=== PATIENT | male | born 1940 | race Caucasian/White ===

== ENCOUNTER 2016-03-19 14:29 | Outpatient (CLI) | payer MEDICARE | END 2016-03-19 14:30 | disposition home or self-care (01) | DX: M35.3 Polymyalgia rheumatica (principal); R73.01 Impaired fasting glucose; I12.9 Hypertensive chronic kidney disease with stage 1 through stage 4 chronic kidney disease, or unspecified chronic kidney disease; N18.1 Chronic kidney disease, stage 1 ==

== ENCOUNTER 2016-04-28 10:22 | Outpatient (CLI) | payer MEDICARE | END 2016-04-28 10:23 | disposition home or self-care (01) | DX: M35.3 Polymyalgia rheumatica (principal) ==

== ENCOUNTER 2016-05-19 11:31 | Outpatient (CLI) | payer MEDICARE | END 2016-05-19 11:32 | disposition home or self-care (01) | DX: M35.3 Polymyalgia rheumatica (principal) ==

== ENCOUNTER 2016-06-16 09:55 | Outpatient (CLI) | payer MEDICARE | END 2016-06-16 09:56 | disposition home or self-care (01) | DX: M35.3 Polymyalgia rheumatica (principal) ==

== ENCOUNTER 2016-07-14 10:38 | Outpatient (CLI) | payer MEDICARE | END 2016-07-14 10:39 | disposition home or self-care (01) | DX: M35.3 Polymyalgia rheumatica (principal) ==

== ENCOUNTER 2016-08-12 09:41 | Outpatient (CLI) | payer MEDICARE ==
[2016-08-12 18:09] LABS: CALCIUM 9.1 mg/dL (8.5-10.3); CREATININE 1.1 mg/dL (0.6-1.2)
== END 2016-08-12 09:42 | disposition home or self-care (01) ==
LOC: LAB.F 09:41
PROVIDERS: ATTEND Family Medicine
DX: G56.03 Carpal tunnel syndrome, bilateral upper limbs (principal); I10 Essential (primary) hypertension
CPT/HCPCS: 36415; 80048; 86140

== ENCOUNTER 2016-09-16 09:45 | Outpatient (CLI) | payer MEDICARE ==
[2016-09-16 18:11] LABS: BUN - BLOOD UREA NITROGEN 32 mg/dL (6-20); CALCIUM 9.2 mg/dL (8.5-10.3); CARBON DIOXIDE - CO2 24 mmol/L (21-32); CHLORIDE 104 mmol/L (101-111); CREATININE 1.1 mg/dL (0.6-1.2); GFR - MDRD 65 (>89); GLUCOSE 117 mg/dL (70-100); POTASSIUM 3.9 mmol/L (3.5-5.0); SODIUM 139 mmol/L (135-145)
== END 2016-09-16 09:46 | disposition home or self-care (01) ==
LOC: LAB.F 09:45
PROVIDERS: ATTEND Family Medicine
DX: M35.3 Polymyalgia rheumatica (principal)
CPT/HCPCS: 36415; 80048; 85651; 86140

== ENCOUNTER 2016-10-21 13:21 | Outpatient (CLI) | payer MEDICARE | END 2016-10-21 13:22 | disposition home or self-care (01) | LOC: LAB.F 13:21 | PROVIDERS: ATTEND Family Medicine | DX: M35.3 Polymyalgia rheumatica (principal) | CPT/HCPCS: 36415; 85651; 86140 ==

== ENCOUNTER 2016-11-24 12:48 | Outpatient (CLI) | payer MEDICARE | END 2016-11-24 12:49 | disposition home or self-care (01) | LOC: LAB.F 12:48 | PROVIDERS: ATTEND Family Medicine | DX: M35.3 Polymyalgia rheumatica (principal) | CPT/HCPCS: 36415; 85651; 86140 ==

== ENCOUNTER 2017-05-26 09:56 | Outpatient (CLI) | payer MEDICARE ==
[2017-05-26 17:38] LABS: BASOPHILS # (AUTO) 0.1 10^3/uL (0.0-0.1); BASOPHILS % (AUTO) 0.7 %; EOSINOPHILS # (AUTO) 0.4 10^3/uL (0.0-0.7); EOSINOPHILS % (AUTO) 5.2 %; LYMPHOCYTES % (AUTO) 25.6 %; MEAN CORPUSCULAR HEMOGLOBIN 31.4 pg (27.0-31.0); MEAN CORPUSCULAR VOLUME 94.9 fL (80.0-94.0); MEAN PLATELET VOLUME 8.3 fL (7.4-11.4); MONOCYTES # (AUTO) 0.6 10^3/uL (0.0-1.0); MONOCYTES % (AUTO) 7.7 %; NEUTROPHILS # (AUTO) 4.8 10^3/uL (1.5-6.6); NEUTROPHILS % (AUTO) 60.8 %; PLT - PLATELET COUNT 186 10^3/uL (130-450); RED BLOOD COUNT 4.47 10^6/uL (4.70-6.10); RED CELL DISTRIBUTION WIDTH 13.1 % (12.0-15.0); WHITE BLOOD COUNT 7.9 x10^3/uL (4.8-10.8)
[2017-05-26 18:02] LABS: ALBUMIN 4.3 g/dL (3.2-5.5); ALBUMIN/GLOBULIN RATIO 1.5 (1.0-2.2); ALKALINE PHOSPHATASE 53 IU/L (42-121); ALT ALANINE AMINOTRANSFERASE 14 IU/L (10-60); AST ASPARTATE AMINOTRANSFERASE 20 IU/L (10-42); BILIRUBIN,TOTAL 0.9 mg/dL (0.2-1.0); BUN - BLOOD UREA NITROGEN 25 mg/dL (6-20); CARBON DIOXIDE - CO2 27 mmol/L (21-32); CHLORIDE 102 mmol/L (101-111); CREATININE 1.1 mg/dL (0.6-1.2); GFR - MDRD 65 (>89); GLUCOSE 99 mg/dL (70-100); SODIUM 137 mmol/L (135-145); TOTAL PROTEIN 7.2 g/dL (6.7-8.2)
[2017-05-26 18:03] LABS: CRP - C-REACTIVE PROTEIN < 1.0 mg/dL (0-1.0)
== END 2017-05-26 09:57 | disposition home or self-care (01) ==
LOC: LAB.F 09:56
PROVIDERS: ATTEND Nurse Practitioner Family
DX: I49.3 Ventricular premature depolarization (principal); N18.1 Chronic kidney disease, stage 1
CPT/HCPCS: 36415; 80053; 84443; 85025; 85651; 86140; 93005

== ENCOUNTER 2017-06-05 02:05 | Emergency (ER) | payer MEDICARE ==
[2017-06-05 02:58] LABS: BASOPHILS # (AUTO) 0.1 10^3/uL (0.0-0.1); BASOPHILS % (AUTO) 1.6 %; EOSINOPHILS # (AUTO) 0.4 10^3/uL (0.0-0.7); HGB - HEMOGLOBIN 13.8 g/dL (14.0-18.0); LYMPHOCYTES # (AUTO) 1.9 10^3/uL (1.5-3.5); LYMPHOCYTES % (AUTO) 22.7 %; MEAN CORPUSCULAR HEMOGLOBIN 31.8 pg (27.0-31.0); MEAN CORPUSCULAR VOLUME 93.7 fL (80.0-94.0); MEAN PLATELET VOLUME 8.1 fL (7.4-11.4); MONOCYTES # (AUTO) 0.6 10^3/uL (0.0-1.0); MONOCYTES % (AUTO) 7.1 %; NEUTROPHILS # (AUTO) 5.2 10^3/uL (1.5-6.6); NEUTROPHILS % (AUTO) 63.6 %; PLT - PLATELET COUNT 166 10^3/uL (130-450); RED BLOOD COUNT 4.34 10^6/uL (4.70-6.10); RED CELL DISTRIBUTION WIDTH 12.8 % (12.0-15.0); WHITE BLOOD COUNT 8.2 x10^3/uL (4.8-10.8)
[2017-06-05 03:10] LABS: ALBUMIN 4.2 g/dL (3.2-5.5); ALBUMIN/GLOBULIN RATIO 1.6 (1.0-2.2); BILIRUBIN,TOTAL 0.5 mg/dL (0.2-1.0); CREATININE 1.2 mg/dL (0.6-1.2); TOTAL PROTEIN 6.9 g/dL (6.7-8.2)
--- NOTE | 2017-06-05 04:01 | XRAY Preliminary Report ---
Exam: XR CHEST 1 VIEW X-RAY IMPRESSION: 1. Borderline cardiomegaly. No acute abnormality seen. [facility] SITE ID: [id number]
--- NOTE | 2017-06-05 04:01 | XRAY Report ---
EXAM: CHEST RADIOGRAPHY EXAM DATE: 06/05/2017 03:38 AM. CLINICAL HISTORY: Elevated BNP. High blood pressure. Left arm and left jaw discomfort. COMPARISON: None. TECHNIQUE: 1 view. FINDINGS: Lungs/Pleura: No alveolar consolidation or pleural effusion. No pneumothorax. Mediastinum: Borderline cardiomegaly. Aortic atherosclerosis. Other: None. IMPRESSION: 1. Borderline cardiomegaly. No acute abnormality seen. [facility] Referring Provider Line: [phone] SITE ID: [id number]
--- NOTE | 2017-06-05 04:21 | ED Physician Documentation ---
History of Present Illness - Stated complaint Stated Complaint: HIGH BLOOD PRESSURE - Chief complaint Chief Complaint: Cardiac - History obtained from History obtained from: Patient - History of Present Illness Timing: Today - Additonal information Additional information: Patient is a 76 year old male with a history of ckd and htn. Due to the ckd patient has been monitoring his blood pressures multiple times a day. patient states that his systolic pressure reached 190 so he came to the emergency department. Upon initial evaluation in the emergency department patient was awake, alert and in no distress. Review of Systems Constitutional: denies: Fever, Chills Eyes: reports: Reviewed and negative Ears: reports: Reviewed and negative Nose: reports: Reviewed and negative Throat: denies: Sore throat Cardiac: denies: Chest pain / pressure, Palpitations, Pedal edema, Calf pain Respiratory: denies: Dyspnea, Cough, Wheezing GI: denies: Abdominal Pain, Nausea, Vomiting : reports: Reviewed and negative Skin: reports: Reviewed and negative Musculoskeletal: denies: Back pain, Extremity swelling Neurologic: denies: Generalized weakness, Focal weakness, Numbness Immunocompromised: denies: Immunocompromised PD PAST MEDICAL HISTORY - Past Medical History Past Medical History: Yes Cardiovascular: Murmur : Renal insuffiency - Past Surgical History Ortho: Carpal Tunnel surgery HEENT: Cataracts - Present Medications Home Medications: Ambulatory Orders Medication Instructions Recorded Confirmed Losartan/Hydrochlorothiazide 1 tab PO DAILY 06/05/17 06/05/17 [Losartan-Hctz 100-25 mg Tab] - Allergies Allergies/Adverse Reactions: Allergies Allergy/AdvReac Type Severity Reaction Status Date / Time Penicillins Allergy Unknown Verified 06/05/17 02:17 - Social History Does the pt smoke?: No Smoking Status: Former smoker Does the pt drink ETOH?: No Does the pt have substance abuse?: No - POLST Patient has POLST: No PD ED PE NORMAL - Vitals Vital signs reviewed: Yes - General General: Alert and oriented X 3, No acute distress - HEENT HEENT: Atraumatic, PERRL - Neck Neck: Supple, no meningeal sign - Cardiac Cardiac: RRR, No murmur - Respiratory Respiratory: No respiratory distress, Clear bilaterally - Abdomen Abdomen: Soft, Non tender, Non distended - Derm Derm: Normal color - Extremities Extremities: No deformity, No edema - Neuro Neuro: Alert and oriented X 3, No motor deficit, No sensory deficit, Normal speech Eye Opening: Spontaneous Motor: Obeys Commands Verbal: Oriented GCS Score: 15 - Psych Psych: Normal mood PD ED PE EXPANDED - Neck Neck: JVD present Results - Vitals Vitals: Vital Signs - 24 hr 06/05/17 06/05/17 06/05/17 02:11 02:44 03:27 Temperature 36.4 C L Heart Rate 70 64 59 L Respiratory 18 14 20 Rate Blood Pressure 188/66 H 170/52 H 165/51 H O2 Saturation 96 98 98 06/05/17 04:22 Temperature Heart Rate 61 Respiratory 18 Rate Blood Pressure 176/77 H O2 Saturation 99 Oxygen O2 Source Room air - EKG (time done) 0219 Rate: Rate (enter#) (68) Rhythm: NSR [place]: Normal Intervals: RBBB QRS: LVH Compare to prior EKG: Changed from prior EKG - Labs Labs: Laboratory Tests 06/05/17 06/05/17 06/05/17 02:30 02:30 02:30 WBC 8.2 RBC 4.34 L Hgb 13.8 L Hct 40.7 L MCV 93.7 MCH 31.8 H MCHC 34.0 RDW 12.8 Plt Count 166 MPV 8.1 Neut # 5.2 Lymph # 1.9 Cole # 0.6 Eos # 0.4 Baso # 0.1 Absolute Nucleated RBC 0.00 Nucleated RBC % 0.0 D-Dimer Sodium 137 Potassium 4.2 Chloride 105 Carbon Dioxide 24 Anion Gap 8.0 BUN 33 H Creatinine 1.2 Estimated GFR (MDRD) 59 L Glucose 109 H Calcium 9.0 Total Bilirubin 0.5 AST 19 ALT 13 Alkaline Phosphatase 52 Troponin I 0.05 B-Natriuretic Peptide Total Protein 6.9 Albumin 4.2 Globulin 2.7 Albumin/Globulin Ratio 1.6 Lipase 29 06/05/17 06/05/17 02:30 02:30 WBC RBC Hgb Hct MCV MCH MCHC RDW Plt Count MPV Neut # Lymph # Cole # Eos # Baso # Absolute Nucleated RBC Nucleated RBC % D-Dimer < 200.0 L Sodium Potassium Chloride Carbon Dioxide Anion Gap BUN Creatinine Estimated GFR (MDRD) Glucose Calcium Total Bilirubin AST ALT Alkaline Phosphatase Troponin I B-Natriuretic Peptide 400 H Total Protein Albumin Globulin Albumin/Globulin Ratio Lipase - Rads (name of study) chest x-ray Radiology: Final report received (cardiomegaly no signs of overt failure) PD MEDICAL DECISION MAKING - ED course Complexity details: reviewed old records, reviewed results, re-evaluated patient , considered differential, d/w patient, d/w family, d/w networks software consultant ED course: Patient was seen and examined at bedside. IV access was gained and labs were drawn. ekg was performed which showed lvh and a right bundle branch block. Patient was placed on a monitor. patient denied any acute complaints. patient' s diagnostic revealed slightly worse gfr and a bnp of 400. ekg was compared to a prior ekg from ten days ago and the rbbb was new. chest x-ray was performed and showed no sign of acute fluid overload. Patient was found to have a few intermittent pauses on diagnostic cardiac sonographer that lasted a few seconds. Due to the cardiac pause and ekg changes cardiology was contacted and the case was discussed with dr. cedeño at [place]. He stated as long as the pause was less than 5 seconds and the patient was asymptomatic no further work up was necessary at this time. Patient and family were made aware of the findings. Patient remained chest pain free and required no further work up. Patient was stable for discharge with outpatient follow up. Departure - Departure Disposition: Home, Self Care Clinical Impression: Hypertension, CKD (chronic kidney disease) Condition: Good Instructions: Hypertension Kidney Disease Follow-Up: nJ Hosuton MD [Primary Care Provider] - Within 3 Days Comments: Your diagnostics today showed that your kidney function is slowly getting worse. You were also found to have changes with your ekg and you have and enlarged heart. While there is nothing that needs to emergently happen you do need follow up. It is important that you follow up with your doctor on wednesday and get the stress test and echo-cardiogram. You were also found to have a pause in your heartbeat. Your's was slow but at times they can get longer. You should return to the emergency department if your pass out, or feel like you are going to pass out. You should also come in for chest pain, trouble breathing, leg swelling, new worsening or uncontrollable symptoms.
[2017-06-05 04:23] VITALS: BP 176/77
== END 2017-06-05 04:33 | disposition home or self-care (01) ==
LOC: ED 02:05
DX: I12.9 Hypertensive chronic kidney disease with stage 1 through stage 4 chronic kidney disease, or unspecified chronic kidney disease (principal); N18.9 Chronic kidney disease, unspecified; I51.7 Cardiomegaly; I45.10 Unspecified right bundle-branch block; Z87.891 Personal history of nicotine dependence
CPT/HCPCS: 36415; 71045; 80053; 83690; 83880; 84484; 85025; 85379; 93005; 99284

== ENCOUNTER 2018-04-06 01:48 | Emergency (ER) | payer MEDICARE, OTHER ==
--- NOTE | 2018-04-06 02:05 | ED Physician Documentation ---
History of Present Illness - Stated complaint Stated Complaint: RACING HEART BEAT - Chief complaint Chief Complaint: Cardiac - History obtained from History obtained from: Patient - History of Present Illness Timing: Enter time (20:15), Today Pain level max: 0 Pain level now: 0 Improved by: nothing Worsened by: no exacerbating factors - Additonal information Additional information: sudden onset rapid palpitations 8:15 tonight while sitting at home. he has had similar episodes in the recent past but these have been self-limited (resolving in no more than an hour) and thus he did not seek medical attention until tonight (as the episode is ongoing for several hours). Review of Systems Constitutional: reports: Reviewed and negative Cardiac: reports: Palpitations. denies: Chest pain / pressure, Pedal edema Respiratory: reports: Reviewed and negative GI: reports: Reviewed and negative Musculoskeletal: reports: Reviewed and negative Neurologic: reports: Reviewed and negative PD PAST MEDICAL HISTORY - Past Medical History Cardiovascular: Murmur : Renal insuffiency - Past Surgical History Ortho: Carpal Tunnel surgery HEENT: Cataracts - Present Medications Home Medications: Ambulatory Orders Medication Instructions Recorded Confirmed Losartan/Hydrochlorothiazide 1 tab PO DAILY 06/05/17 06/05/17 [Losartan-Hctz 100-25 mg Tab] Metoprolol Tartrate 25 mg PO ONCE PRN #10 tablet 04/06/18 - Allergies Allergies/Adverse Reactions: Allergies Allergy/AdvReac Type Severity Reaction Status Date / Time Penicillins Allergy Unknown Verified 04/06/18 01:57 - Social History Does the pt smoke?: No Smoking Status: Former smoker Does the pt drink ETOH?: No Does the pt have substance abuse?: No - POLST Patient has POLST: No PD ED PE NORMAL - Vitals Vital signs reviewed: Yes - General General: Alert and oriented X 3, No acute distress, Well developed/nourished - Neck Neck: Thyroid normal - Cardiac Cardiac: No murmur - Respiratory Respiratory: No respiratory distress, Clear bilaterally - Abdomen Abdomen: Soft, Non tender - Derm Derm: Normal color, Warm and dry - Extremities Extremities: No edema PD ED PE EXPANDED - Cardiac Cardiac: Tachy, Irregularly irregular Results - Vitals Vitals: Vital Signs - 24 hr 04/06/18 04/06/18 04/06/18 01:50 02:09 02:50 Temperature 36.2 C L Heart Rate 126 H 122 H Respiratory 17 16 Rate Blood Pressure 153/75 H 144/64 H Blood Pressure 148/68 H [Right] O2 Saturation 97 96 04/06/18 04/06/18 04/06/18 02:55 03:00 03:05 Temperature Heart Rate 54 L 52 L 53 L Respiratory 16 16 16 Rate Blood Pressure 124/39 L 121/39 L 124/40 L Blood Pressure [Right] O2 Saturation 96 96 95 04/06/18 04/06/18 04/06/18 03:20 03:35 03:50 Temperature Heart Rate 52 L 52 L 53 L Respiratory 14 16 16 Rate Blood Pressure 128/39 L 129/47 L 124/38 L Blood Pressure [Right] O2 Saturation 96 96 96 04/06/18 05:14 Temperature Heart Rate 54 L Respiratory 16 Rate Blood Pressure 128/56 L Blood Pressure [Right] O2 Saturation 96 Oxygen O2 Source Room air - EKG (time done) No standard instances Rate: Rate (enter#) (123) Rhythm: Atrial fibrillation [place]: Normal Intervals: RBBB QRS: Normal Compare to prior EKG: Changed from prior EKG (NSR on 06/05/17 although RBBB was present on the 06/05/17 EKG) - Labs Labs: Laboratory Tests 04/06/18 04/06/18 04/06/18 01:55 01:55 01:55 WBC 8.8 RBC 4.50 L Hgb 14.0 Hct 42.4 MCV 94.3 H MCH 31.2 H MCHC 33.1 RDW 13.3 Plt Count 168 MPV 8.0 Neut # (Auto) 6.1 Lymph # (Auto) 1.7 [place] # (Auto) 0.7 Eos # (Auto) 0.2 Baso # (Auto) 0.1 Absolute Nucleated RBC 0.00 Nucleated RBC % 0.0 Sodium 138 Potassium 4.5 Chloride 108 Carbon Dioxide 22 Anion Gap 8.0 BUN 34 H Creatinine 1.3 H Estimated GFR (MDRD) 53 L Glucose 130 H Calcium 8.9 Total Bilirubin 0.7 AST 19 ALT 12 Alkaline Phosphatase 47 Troponin I 0.10 Total Protein 7.1 Albumin 4.1 Globulin 3.0 Albumin/Globulin Ratio 1.4 Lipase 37 TSH 04/06/18 01:55 WBC RBC Hgb Hct MCV MCH MCHC RDW Plt Count MPV Neut # (Auto) Lymph # (Auto) [place] # (Auto) Eos # (Auto) Baso # (Auto) Absolute Nucleated RBC Nucleated RBC % Sodium Potassium Chloride Carbon Dioxide Anion Gap BUN Creatinine Estimated GFR (MDRD) Glucose Calcium Total Bilirubin AST ALT Alkaline Phosphatase Troponin I Total Protein Albumin Globulin Albumin/Globulin Ratio Lipase TSH 1.06 - Rads (name of study) chest xray Radiology: Prelim report reviewed, See rad report PD MEDICAL DECISION MAKING - ED course Complexity details: reviewed old records, reviewed results, re-evaluated patient, considered differential, d/w patient, d/w family ED course: converted to NSR immediately after iv cardizem, and this correlated with sudden resolution of symptoms. I emphasized the importance of following up with his doctor, as further testing might be needed (such as echo) and options for treatment can be discussed Departure - Departure Disposition: 01 Home, Self Care Clinical Impression: Atrial fibrillation Condition: Good Instructions: ED Afib Prescriptions: Metoprolol Tartrate 25 mg PO ONCE PRN #10 tablet PRN Reason: Tachycardia Comments: If you have another episode of rapid heart rate, take your blood pressure. If the systolic blood pressure (upper number) is 120 or higher, you can take a dose of the metoprolol (the medication I prescribed for you). If it doesn't resolve the symptoms within 1 hour, you should return to the emergency department. You can also try bearing down for 15 seconds (as if having a bowel movement) and suddenly relaxing; this can sometimes result in resolution of the rapid heart rate. If you are having shortness of breath, chest pain, lightheadedness, or any other concerning symptoms, please call 911. Discharge Date/Time: 04/06/18 05:15
[2018-04-06 02:10] LABS: BASOPHILS # (AUTO) 0.1 10^3/uL (0.0-0.1); BASOPHILS % (AUTO) 0.8 %; EOSINOPHILS # (AUTO) 0.2 10^3/uL (0.0-0.7); EOSINOPHILS % (AUTO) 2.8 %; LYMPHOCYTES # (AUTO) 1.7 10^3/uL (1.5-3.5); LYMPHOCYTES % (AUTO) 19.5 %; MEAN CORPUSCULAR HEMOGLOBIN 31.2 pg (27.0-31.0); MEAN CORPUSCULAR HGB CONC 33.1 g/dL (32.0-36.0); MEAN CORPUSCULAR VOLUME 94.3 fL (80.0-94.0); MONOCYTES # (AUTO) 0.7 10^3/uL (0.0-1.0); MONOCYTES % (AUTO) 7.6 %; NEUTROPHILS # (AUTO) 6.1 10^3/uL (1.5-6.6); NEUTROPHILS % (AUTO) 69.3 %; PLT - PLATELET COUNT 168 10^3/uL (130-450); RED CELL DISTRIBUTION WIDTH 13.3 % (12.0-15.0); WHITE BLOOD COUNT 8.8 x10^3/uL (4.8-10.8)
[2018-04-06 02:22] LABS: ALBUMIN 4.1 g/dL (3.2-5.5); ALBUMIN/GLOBULIN RATIO 1.4 (1.0-2.2); BILIRUBIN,TOTAL 0.7 mg/dL (0.2-1.0); CALCIUM 8.9 mg/dL (8.5-10.3); CREATININE 1.3 mg/dL (0.6-1.2); TOTAL PROTEIN 7.1 g/dL (6.7-8.2)
[2018-04-06] MEDS ORDERED: diltiaZEM INJ 5 MG/ML VIAL IVP STA (02:28)
--- NOTE | 2018-04-06 03:03 | XRAY Report ---
Reason: palpitations, MARSHA Procedure Date: 04/06/2018 Accession Number: [id number] / [id number] Procedure: XR - Chest 2 View X-Ray CPT Code: 71163 FULL RESULT: EXAM: CHEST RADIOGRAPHY EXAM DATE: 04/06/2018 02:48 AM. CLINICAL HISTORY: Palpitations, MARSHA. COMPARISON: CHEST 1 VIEW 06/05/2017 3:38 AM. TECHNIQUE: 2 views. FINDINGS: Lungs/Pleura: No alveolar consolidation or pleural effusion seen. Borderline pulmonary vascular congestion. No pneumothorax. Mediastinum: Mild cardiomegaly. Aortic atherosclerosis. Other: None. IMPRESSION: 1. Mild cardiomegaly and borderline pulmonary vascular congestion. [facility]
[2018-04-06 05:15] VITALS: BP 128/56
== END 2018-04-06 05:15 | disposition home or self-care (01) ==
LOC: ED 01:48
DX: I48.91 Unspecified atrial fibrillation (principal); Z87.891 Personal history of nicotine dependence
CPT/HCPCS: 36415; 71046; 80053; 83690; 84443; 84484; 85025; 93005; 99284

== ENCOUNTER 2018-05-18 12:06 | Outpatient (CLI) | payer MEDICARE, OTHER ==
--- NOTE | 2018-05-18 13:34 | CARDIAC PROCEDURE NOTE ---
DATE OF SERVICE: 05/18/2018 Physician: Jennifer Liao MD, [facility] INDICATION: Dyspnea. The patient described to me dyspnea just walking from one room to the other in his house. ORDERED TEST: Treadmill stress test with Echo. RESTING EKG: Normal sinus rhythm, right bundle branch block, RVH, severe LVH voltage with strain pattern. RESTING ECHO (preliminary report) showed: an LV wall motion abnormality is present at rest, and there is severe aortic regurgitation and critical aortic stenosis. The stress test is contraindicated with critical aortic stenosis. Reny Wolf NP was contacted. The patient will go on to have a full Echo with Doppler today, but no stress test, and he needs urgent evaluation by Cardiology regarding his aortic valve. TD: 05/18/2018 13:21 MTDD
== END 2018-05-18 12:07 | disposition home or self-care (01) ==
LOC: DI 12:06
PROVIDERS: ATTEND Nurse Practitioner Family
DX: I08.3 Combined rheumatic disorders of mitral, aortic and tricuspid valves (principal)
CPT/HCPCS: 93016; 93017; 93018; 93306; 93350; 93351

== ENCOUNTER 2018-06-03 09:46 | Outpatient (CLI) | payer MEDICARE, OTHER ==
[2018-06-03 18:08] LABS: CREATININE 1.7 mg/dL (0.6-1.2)
== END 2018-06-03 09:47 | disposition home or self-care (01) ==
LOC: LAB.F 09:46
PROVIDERS: ATTEND Specialist
DX: I50.22 Chronic systolic (congestive) heart failure (principal)
CPT/HCPCS: 36415; 80048; 83880

== ENCOUNTER 2018-06-26 08:33 | Emergency (ER) | payer MEDICARE, OTHER ==
[2018-06-26] MEDS ORDERED: diltiaZEM INJ 5 MG/ML VIAL IVP STA (09:03)
--- NOTE | 2018-06-26 09:06 | ED Physician Documentation ---
History of Present Illness - Stated complaint Stated Complaint: AFIB - Chief complaint Chief Complaint: Cardiac - History obtained from History obtained from: Patient, Family - History of Present Illness Timing: Enter time (0600), Today - Additonal information Additional information: 77-year-old male with a history of critical aortic stenosis and a atrial fibrillation has developed rapid atrial fibrillation and he has taken some oral diltiazem this is not slowed his rate down. He did do some Valsalva maneuvers this did not help as well. He reports that he has had 3 prior episodes that have resolved resolved with Valsalva maneuver. He was seen in the emergency department in March of this year given diltiazem with conversion. He has had a stress echo which was aborted secondary to critical aortic stenosis. He has been into see the riverboat captain and the cardiothoracic surgeon with a plan to have a TAVR placed. Review of Systems Constitutional: denies: Fever, Chills, Myalgias Eyes: denies: Decreased vision Ears: denies: Ear pain Nose: reports: Congestion. denies: Rhinorrhea / runny nose Throat: denies: Sore throat Cardiac: denies: Chest pain / pressure, Palpitations Respiratory: reports: Cough. denies: Dyspnea GI: denies: Abdominal Pain, Nausea, Vomiting : denies: Dysuria, Frequency Skin: denies: Rash Musculoskeletal: denies: Neck pain, Back pain, Extremity pain Neurologic: denies: Generalized weakness, Focal weakness, Numbness PD PAST MEDICAL HISTORY - Past Medical History Cardiovascular: Murmur : Renal insuffiency - Past Surgical History Ortho: Carpal Tunnel surgery HEENT: Cataracts - Present Medications Home Medications: Ambulatory Orders Medication Instructions Recorded Confirmed Metoprolol Tartrate 25 mg PO ONCE PRN #10 tablet 04/06/18 06/26/18 Furosemide 40 mg PO DAILY 06/26/18 06/26/18 Metoprolol Succinate [Toprol Xl] 25 mg PO DAILY PM 06/26/18 06/26/18 - Allergies Allergies/Adverse Reactions: Allergies Allergy/AdvReac Type Severity Reaction Status Date / Time Penicillins Allergy Unknown Verified 06/26/18 08:43 - Social History Does the pt smoke?: No Smoking Status: Former smoker Does the pt drink ETOH?: No Does the pt have substance abuse?: No - Immunizations Immunizations are current?: Yes - POLST Patient has POLST: No PD ED PE NORMAL - Vitals Vital signs reviewed: Yes (tachy and diastolic hypotension ) - General General: Alert and oriented X 3, No acute distress, Well developed/nourished - HEENT HEENT: Atraumatic, PERRL, EOMI, Ears normal, Other (dry mucous membranes ) - Neck Neck: Supple, no meningeal sign, No bony TTP - Cardiac Cardiac: No murmur, Other (regular rate at 106 2/6 holosystolic murmer at LSB) - Respiratory Respiratory: No respiratory distress, Clear bilaterally - Abdomen Abdomen: Soft, Non tender - Back Back: No CVA TTP, No spinal TTP - Derm Derm: Normal color, Warm and dry, No rash - Extremities Extremities: No deformity, No edema - Neuro Neuro: Alert and oriented X 3, corporate compliance manager 2-12 intact, No motor deficit, No sensory deficit, Normal speech Eye Opening: Spontaneous Motor: Obeys Commands Verbal: Oriented GCS Score: 15 - Psych Psych: Normal mood, Normal affect Results - Vitals Vitals: Vital Signs - 24 hr 06/26/18 06/26/18 08:40 09:24 Temperature 36.2 C L 36.9 C Heart Rate 107 H 62 Respiratory 24 16 Rate Blood Pressure 126/55 L 135/47 H O2 Saturation 95 94 Oxygen O2 Source Room air - EKG (time done) 0839 Rate: Rate (enter#) (106) Rhythm: Atrial fibrillation Intervals: RBBB Compare to prior EKG: Changed from prior EKG (SPT 04-06-18 the rate has decreased. ) Computer interpretation: Disagree with computer (I do not see p-waves. The patient does have other EKG's with p-waves. ) 0934 Rate: Rate (enter#) (61) Rhythm: NSR Intervals: Prolonged [place], RBBB Ischemia: Non specific changes Compare to prior EKG: Changed from prior EKG (SPT earlier today rate has slowed and rhythm has converted into sinus.) Computer interpretation: Agree with computer - Labs Labs: Laboratory Tests 06/26/18 06/26/18 06/26/18 08:50 08:50 08:50 WBC 8.5 RBC 4.16 L Hgb 13.0 L Hct 39.5 L MCV 95.0 H MCH 31.2 H MCHC 32.8 RDW 13.2 Plt Count 175 MPV 8.8 Neut # (Auto) 6.6 Lymph # (Auto) 1.1 L [place] # (Auto) 0.4 Eos # (Auto) 0.3 Baso # (Auto) 0.1 Absolute Nucleated RBC 0.00 Nucleated RBC % 0.0 Sodium 136 Potassium 4.0 Chloride 101 Carbon Dioxide 25 Anion Gap 10.0 BUN 49 H Creatinine 1.7 H Estimated GFR (MDRD) 39 L Glucose 179 H Calcium 8.8 Total Bilirubin 1.7 H AST 34 ALT 43 Alkaline Phosphatase 60 Troponin I 0.05 Total Protein 6.9 Albumin 3.8 Globulin 3.1 Albumin/Globulin Ratio 1.2 Lipase 37 Procedures - IVC sono (time) 0900 Bedside IVC sono: IVC measures (cm) (1.76), IVC collapsed c insp (cm) (1.26), Collapsibility index (0.26), Euvolemia (nearly failing.) PD MEDICAL DECISION MAKING - ED course Complexity details: reviewed old records, reviewed results, re-evaluated patient, considered differential, d/w patient, d/w family ED course: 77-year-old male with atrial fibrillation intermittently and critical aortic stenosis as a rapid heart rate this morning he is not volume depleted and he does not appear to be in failure. Diltiazem was ordered and the patient converted prior to administration. He has taken the oral dilt at about 0645 and he converted at about 0915. Departure - Departure Disposition: 01 Home, Self Care Clinical Impression: Atrial fibrillation Qualifiers: Atrial fibrillation type: paroxysmal Qualified Code(s): I48.0 - Paroxysmal atrial fibrillation Condition: Stable Instructions: ED Afib Follow-Up: George Valdes MD [Primary Care Provider] -
[2018-06-26 09:21] LABS: BASOPHILS # (AUTO) 0.1 10^3/uL (0.0-0.1); BASOPHILS % (AUTO) 0.6 %; EOSINOPHILS # (AUTO) 0.3 10^3/uL (0.0-0.7); EOSINOPHILS % (AUTO) 3.7 %; LYMPHOCYTES # (AUTO) 1.1 10^3/uL (1.5-3.5); LYMPHOCYTES % (AUTO) 12.5 %; MEAN CORPUSCULAR HEMOGLOBIN 31.2 pg (27.0-31.0); MEAN CORPUSCULAR HGB CONC 32.8 g/dL (32.0-36.0); MEAN PLATELET VOLUME 8.8 fL (7.4-11.4); MONOCYTES # (AUTO) 0.4 10^3/uL (0.0-1.0); MONOCYTES % (AUTO) 5.3 %; NEUTROPHILS # (AUTO) 6.6 10^3/uL (1.5-6.6); NEUTROPHILS % (AUTO) 77.9 %; PLT - PLATELET COUNT 175 10^3/uL (130-450); RED BLOOD COUNT 4.16 10^6/uL (4.70-6.10); RED CELL DISTRIBUTION WIDTH 13.2 % (12.0-15.0); WHITE BLOOD COUNT 8.5 x10^3/uL (4.8-10.8)
[2018-06-26 09:33] LABS: ALBUMIN 3.8 g/dL (3.2-5.5); ALBUMIN/GLOBULIN RATIO 1.2 (1.0-2.2); BILIRUBIN,TOTAL 1.7 mg/dL (0.2-1.0); CALCIUM 8.8 mg/dL (8.5-10.3); CREATININE 1.7 mg/dL (0.6-1.2); TOTAL PROTEIN 6.9 g/dL (6.7-8.2)
[2018-06-26 10:19] VITALS: BP 117/44
== END 2018-06-26 10:15 | disposition home or self-care (01) ==
LOC: ED 08:33
DX: I48.0 Paroxysmal atrial fibrillation (principal); I35.0 Nonrheumatic aortic (valve) stenosis; I45.10 Unspecified right bundle-branch block; R00.0 Tachycardia, unspecified; Z87.891 Personal history of nicotine dependence
CPT/HCPCS: 36415; 80053; 83690; 84484; 85025; 93005; 99283; 99284

== ENCOUNTER 2018-06-27 03:30 | Outpatient (CLI) | payer MEDICARE, OTHER | END 2018-06-27 03:31 | disposition critical access hospital (66) | LOC: EMS 03:30 | PROVIDERS: ATTEND Surgery | DX: R06.02 Shortness of breath (principal); R07.89 Other chest pain; R19.7 Diarrhea, unspecified | CPT/HCPCS: A0425; A0427 ==

== ENCOUNTER 2018-06-27 04:04 | Emergency (ER) | payer MEDICARE, OTHER ==
[2018-06-27] MEDS ORDERED: DOXYCYCLINE 100 MG TABLET PO STA (04:22)
[2018-06-27] MEDS ORDERED: DEXAMETHASONE 10 MG/ML VIAL IVP STA (04:22)
--- NOTE | 2018-06-27 04:23 | ED Physician Documentation ---
PD HPI DYSPNEA - Stated complaint Stated Complaint: SOA - Chief complaint Chief Complaint: Resp - History obtained from History obtained from: Patient, EMS - History of Present Illness Timing - onset: Today (He wasIn bed and had a feeling of his heart rate going fast. He has had paroxysmal atrial fibrillation over the past several months. He took an extra metoprolol and waited an hour to see if it would improve. Is still felt fast for him and he called EMS. On their arrival they states that rate was slowing down slowly. He arrived to the hospital feeling his heart rate was more normal rate. He had had some wheezing and dyspnea still on route and was given a nebulizer treatment. He states that is feeling okay at this time As well. He states he has had a cough today productive of some yellow sputum. He denies any history of asthma or emphysema. He does not use any home oxygen or inhalers.) Timing - onset during: Sleep Timing - duration: Hours (1-2) Timing - details: Abrupt onset, Now resolved Inciting event(s): URI (has had some cough with yellow sputum and feeling of tightness in chest.). No: Out of meds Improved by: Inhaler/neb (given by EMS enroute; he does not usually use meds/inhalers for breathing.) Worsened by: Exertion (he does not do much exertional activity due to tight aortic stenosis, with plan for intravascular valvuloplasty later this month.) Associated symptoms: Cough (today), Chest pain / discomfort (tightness), Palpitations (had feeling of fast heart rate for over an hour this morning. 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 No known CAD/MIs.). No: Fever, Hemoptysis, Wheezing Review of Systems Constitutional: denies: Fever, Chills, Myalgias Nose: denies: Rhinorrhea / runny nose, Congestion Throat: denies: Sore throat Cardiac: reports: Chest pain / pressure, Palpitations. denies: Pedal edema, Calf pain Respiratory: reports: Dyspnea, Cough GI: denies: Nausea, Vomiting, Diarrhea Skin: denies: Rash, Lesions Neurologic: denies: Headache PD PAST MEDICAL HISTORY - Past Medical History Cardiovascular: Murmur, Valve disorder (with aortic stenosis, and planned valvuloplasty) Respiratory: None Neuro: None Endocrine/Autoimmune: None : Renal insuffiency - Past Surgical History Ortho: Carpal Tunnel surgery HEENT: Cataracts - Present Medications Home Medications: Ambulatory Orders Medication Instructions Recorded Confirmed Metoprolol Tartrate 25 mg PO ONCE PRN #10 tablet 04/06/18 06/27/18 Furosemide 40 mg PO DAILY 06/26/18 06/27/18 Metoprolol Succinate [Toprol Xl] 25 mg PO DAILY PM 06/26/18 06/27/18 Albuterol Sulf [Ventolin Hfa 1 - 2 puffs INH Q4HR PRN #1 inhaler 06/27/18 Inhaler] Dexamethasone [Decadron] 4 mg PO DAILY #5 tablet 06/27/18 Doxycycline Hyclate 100 mg PO BID #14 capsule 06/27/18 - Allergies Allergies/Adverse Reactions: Allergies Allergy/AdvReac Type Severity Reaction Status Date / Time Penicillins Allergy Unknown Verified 06/27/18 04:21 - Living Situation Living Situation: reports: With family Living Arrangement: reports: At home - Social History Does the pt smoke?: No Smoking Status: Former smoker Does the pt drink ETOH?: No Does the pt have substance abuse?: No - Family History Family history: reports: Non contributory - Immunizations Immunizations are current?: Yes - POLST Patient has POLST: No PD ED PE NORMAL - Vitals Vital signs reviewed: Yes - General General: Alert and oriented X 3, No acute distress, Well developed/nourished - HEENT HEENT: PERRL, Pharynx benign - Neck Neck: Supple, no meningeal sign, No adenopathy - Cardiac Cardiac: RRR, No murmur - Respiratory Respiratory: Clear bilaterally - Abdomen Abdomen: Soft, Non tender - Back Back: No CVA TTP - Derm Derm: Normal color, Warm and dry, Other - Extremities Extremities: No deformity, No tenderness to palpate, No edema, No calf tenderness / cord - Neuro Neuro: Alert and oriented X 3, No motor deficit, No sensory deficit, Normal speech Results - Vitals Vitals: Vital Signs - 24 hr 06/27/18 06/27/18 06/27/18 04:10 04:34 04:47 Temperature 36.1 C L Heart Rate 62 57 L 47 L Respiratory 20 16 19 Rate Blood Pressure 154/50 H 136/49 H 126/49 L O2 Saturation 99 96 96 06/27/18 05:08 Temperature Heart Rate 55 L Respiratory 20 Rate Blood Pressure 119/54 L O2 Saturation 97 Oxygen O2 Source Room air - Labs Labs: Laboratory Tests 06/27/18 06/27/18 06/27/18 04:20 04:20 04:20 WBC 8.6 RBC 4.09 L Hgb 12.9 L Hct 38.5 L MCV 94.0 MCH 31.5 H MCHC 33.5 RDW 13.8 Plt Count 170 MPV 9.0 Neut # (Auto) 6.4 Lymph # (Auto) 1.2 L [place] # (Auto) 0.6 Eos # (Auto) 0.3 Baso # (Auto) 0.1 Absolute Nucleated RBC 0.00 Nucleated RBC % 0.0 Sodium 137 Potassium 4.4 Chloride 104 Carbon Dioxide 23 Anion Gap 10.0 BUN 52 H Creatinine 1.5 H Estimated GFR (MDRD) 45 L Glucose 108 H Calcium 8.8 Magnesium 2.3 Total Bilirubin 1.5 H AST 29 ALT 39 Alkaline Phosphatase 65 Troponin I 0.07 B-Natriuretic Peptide Total Protein 6.6 L Albumin 3.7 Globulin 2.9 Albumin/Globulin Ratio 1.3 Lipase 34 06/27/18 04:20 WBC RBC Hgb Hct MCV MCH MCHC RDW Plt Count MPV Neut # (Auto) Lymph # (Auto) [place] # (Auto) Eos # (Auto) Baso # (Auto) Absolute Nucleated RBC Nucleated RBC % Sodium Potassium Chloride Carbon Dioxide Anion Gap BUN Creatinine Estimated GFR (MDRD) Glucose Calcium Magnesium Total Bilirubin AST ALT Alkaline Phosphatase Troponin I B-Natriuretic Peptide 6040.00 H Total Protein Albumin Globulin Albumin/Globulin Ratio Lipase PD MEDICAL DECISION MAKING - ED course Complexity details: reviewed results, re-evaluated patient (He is still breathing well here in the department. It sounds like his symptoms related to the rapid A. fib with some subsequent mild distribution congestive heart failure as he does not really look fluid overloaded significantly. He does describe some cough and yellow sputum production so there may be a bronchitis as well. It does not look pneumonic on x-ray.), considered differential (He has had prior similar episodes with atrial fib. It seems to have converted out to normal. However he still has some shortness of breath along with some yellow pattern sputum. He has noticed tightness of breathing. We will get a chest x-ray and give him some antibiotics and steroids for concern of bacterial cause.), d/w patient Departure - Departure Disposition: Home, Self Care Clinical Impression: Paroxysmal atrial fibrillation Acute bronchitis Qualifiers: Bronchitis organism: unspecified organism Qualified Code(s): J20.9 - Acute bronchitis, unspecified Dyspnea Qualifiers: Dyspnea type: shortness of breath Qualified Code(s): R06.02 - Shortness of breath; R06.00 - Dyspnea, unspecified; R06.01 - Orthopnea Condition: Stable Record reviewed to determine appropriate education?: Yes Instructions: ED Upper Resp Infec Abx Tx, ED Afib Follow-Up: George Valdes MD [Primary Care Provider] - Prescriptions: Albuterol Sulf [Ventolin Hfa Inhaler] 1 - 2 puffs INH Q4HR PRN #1 inhaler PRN Reason: Shortness Of Air/Wheezing Dexamethasone [Decadron] 4 mg PO DAILY #5 tablet Doxycycline Hyclate 100 mg PO BID #14 capsule Comments: Continue usual medications at home including this morning doses. For your cough and yellow sputum, add doxycycline antibiotic and Decadron steroid as directed for the next week. Use an albuterol inhaler 1 or 2 puffs 4 times a day for the next several days and extra times if needed for wheezing or tightness. You can take an expectorant such as Mucinex/guifenacine. If you have episode of the fast heart rate/atrial fibrillation it can, still do the extra dose of metoprolol like you have been. Recheck if overall not well improved over the next few days.
[2018-06-27 04:33] LABS: BASOPHILS # (AUTO) 0.1 10^3/uL (0.0-0.1); EOSINOPHILS # (AUTO) 0.3 10^3/uL (0.0-0.7); EOSINOPHILS % (AUTO) 3.3 %; HGB - HEMOGLOBIN 12.9 g/dL (14.0-18.0); LYMPHOCYTES # (AUTO) 1.2 10^3/uL (1.5-3.5); LYMPHOCYTES % (AUTO) 14.3 %; MEAN CORPUSCULAR HEMOGLOBIN 31.5 pg (27.0-31.0); MEAN CORPUSCULAR HGB CONC 33.5 g/dL (32.0-36.0); MONOCYTES # (AUTO) 0.6 10^3/uL (0.0-1.0); MONOCYTES % (AUTO) 6.9 %; NEUTROPHILS # (AUTO) 6.4 10^3/uL (1.5-6.6); NEUTROPHILS % (AUTO) 74.5 %; PLT - PLATELET COUNT 170 10^3/uL (130-450); RED BLOOD COUNT 4.09 10^6/uL (4.70-6.10); RED CELL DISTRIBUTION WIDTH 13.8 % (12.0-15.0); WHITE BLOOD COUNT 8.6 x10^3/uL (4.8-10.8)
[2018-06-27 04:42] LABS: ALBUMIN 3.7 g/dL (3.2-5.5); ALBUMIN/GLOBULIN RATIO 1.3 (1.0-2.2); BILIRUBIN,TOTAL 1.5 mg/dL (0.2-1.0); CALCIUM 8.8 mg/dL (8.5-10.3); CREATININE 1.5 mg/dL (0.6-1.2); MAGNESIUM 2.3 mg/dL (1.7-2.8); TOTAL PROTEIN 6.6 g/dL (6.7-8.2)
--- NOTE | 2018-06-27 04:47 | XRAY Report ---
Reason: chest pain Procedure Date: 06/27/2018 Accession Number: [id number] / [id number] Procedure: XR - Chest 1 View X-Ray CPT Code: 46282 FULL RESULT: EXAM: CHEST RADIOGRAPHY EXAM DATE: 06/27/2018 04:34 AM. CLINICAL HISTORY: Chest pain. COMPARISON: CHEST 2 VIEW 04/06/2018 2:35 AM. TECHNIQUE: 1 view. FINDINGS: Lungs/Pleura: Pulmonary vascular congestion and small effusions. Mediastinum: Cardiomegaly. Other: None. IMPRESSION: Cardiomegaly, with pulmonary vascular congestion and small effusions, compatible with congestive failure. RADIA
[2018-06-27] MEDS ORDERED: FUROSEMIDE 20 MG/2 ML VIAL IVP STA (05:00)
[2018-06-27 05:41] VITALS: BP 129/47
== END 2018-06-27 05:57 | disposition home or self-care (01) ==
LOC: EDUNIT# → ED 04:04
DX: I48.0 Paroxysmal atrial fibrillation (principal); J20.9 Acute bronchitis, unspecified; R06.00 Dyspnea, unspecified; I35.0 Nonrheumatic aortic (valve) stenosis; Z87.891 Personal history of nicotine dependence
CPT/HCPCS: 36415; 71045; 80053; 83690; 83735; 83880; 84484; 85025; 93005; 96374; 96375; 99283; 99284; A9270

== ENCOUNTER 2018-07-28 10:40 | Outpatient (CLI) | payer MEDICARE, OTHER | END 2018-07-28 10:41 | disposition home or self-care (01) | LOC: LAB.F 10:40 | PROVIDERS: ATTEND Internal Medicine | DX: I48.0 Paroxysmal atrial fibrillation (principal) | CPT/HCPCS: 85610 ==

== ENCOUNTER 2018-08-04 09:19 | Outpatient (CLI) | payer MEDICARE, OTHER | END 2018-08-04 09:20 | disposition home or self-care (01) | LOC: LAB.F 09:19 | PROVIDERS: ATTEND Internal Medicine | DX: I48.0 Paroxysmal atrial fibrillation (principal) | CPT/HCPCS: 85610 ==

== ENCOUNTER 2018-08-11 09:33 | Outpatient (CLI) | payer MEDICARE, OTHER | END 2018-08-11 09:34 | disposition home or self-care (01) | LOC: LAB.F 09:33 | PROVIDERS: ATTEND Internal Medicine | DX: I48.0 Paroxysmal atrial fibrillation (principal) | CPT/HCPCS: 36415; 85610 ==

== ENCOUNTER 2018-08-18 13:13 | Outpatient (CLI) | payer MEDICARE, OTHER | END 2018-08-18 13:14 | disposition home or self-care (01) | LOC: LAB.F 13:13 | PROVIDERS: ATTEND Internal Medicine | DX: I48.0 Paroxysmal atrial fibrillation (principal) | CPT/HCPCS: 85610 ==

== ENCOUNTER 2018-09-01 08:00 | Outpatient (CLI) | payer MEDICARE, OTHER | END 2018-09-01 23:59 | disposition home or self-care (01) | LOC: LAB.F 08:00 | PROVIDERS: ATTEND Specialist | DX: I48.91 Unspecified atrial fibrillation (principal) | CPT/HCPCS: 85610 ==

== ENCOUNTER 2018-09-08 09:41 | Outpatient (CLI) | payer MEDICARE, OTHER ==
[2018-09-08 09:59] LABS: BASOPHILS % (AUTO) 0.5 %; HGB - HEMOGLOBIN 11.7 g/dL (14.0-18.0); MEAN CORPUSCULAR VOLUME 94.1 fL (80.0-94.0); MONOCYTES % (AUTO) 6.2 %
[2018-09-08 10:03] LABS: EOSINOPHILS % (AUTO) 27.4 %; LYMPHOCYTES % (AUTO) 8.8 %; MEAN CORPUSCULAR HGB CONC 31.9 g/dL (32.0-36.0); MEAN PLATELET VOLUME 10.3 fL (7.4-11.4); NEUTROPHILS % (AUTO) 56.8 %; PLT - PLATELET COUNT 229 10^3/uL (130-450); RED CELL DISTRIBUTION WIDTH 15.3 % (12.0-15.0); WHITE BLOOD COUNT 14.6 x10^3/uL (4.8-10.8)
[2018-09-08 10:13] LABS: ALBUMIN 3.4 g/dL (3.2-5.5); ALBUMIN/GLOBULIN RATIO 0.8 (1.0-2.2); BILIRUBIN,TOTAL 1.3 mg/dL (0.2-1.0); CALCIUM 8.9 mg/dL (8.5-10.3); CREATININE 2.3 mg/dL (0.6-1.2); TOTAL PROTEIN 7.5 g/dL (6.7-8.2)
[2018-09-08 10:16] LABS: INR 4.4 (0.8-1.2); PT - PROTHROMBIN TIME 48.1 secs (9.9-12.6)
[2018-09-08 10:21] LABS: ABNORMAL LYMPHS % (MANUAL) 0 %; BAND NEUTROPHILS % (MANUAL) 0 %
[2018-09-08 10:24] LABS: EOSINOPHILS # (MANUAL) 4.5 10^3/uL (0-0.7); LYMPHOCYTES # (MANUAL) 1.5 10^3/uL (1.5-3.5); LYMPHOCYTES % (MANUAL) 10 %; NEUTROPHILS # (MANUAL) 7.6 10^3/uL (1.5-6.6); NEUTROPHILS % (MANUAL) 52 %
[2018-09-08 10:29] LABS: DIFFERENTIAL COMMENT MANUAL DIFFERENTIAL; PLATELET ESTIMATE, MANUAL NORMAL (130-450,000) (NORMAL); PLATELET MORPHOLOGY NORMAL APPEARANCE (NORMAL); RBC MORPHOLOGY (MULTIPLE) 1+ OVALOCYTES (NORMAL)
== END 2018-09-08 09:42 | disposition home or self-care (01) ==
LOC: LAB 09:41
PROVIDERS: ATTEND Internal Medicine Cardiovascular Disease
DX: I48.91 Unspecified atrial fibrillation (principal)
CPT/HCPCS: 36415; 80053; 85025; 85610

== ENCOUNTER 2018-09-12 12:52 | Outpatient (CLI) | payer MEDICARE, OTHER | END 2018-09-12 12:53 | disposition home or self-care (01) | LOC: LAB.S 12:52 | PROVIDERS: ATTEND Specialist | DX: I48.91 Unspecified atrial fibrillation (principal) | CPT/HCPCS: 85610 ==

== ENCOUNTER 2018-09-15 17:50 | Emergency (ER) | payer MEDICARE, OTHER ==
--- NOTE | 2018-09-15 18:05 | ED Physician Documentation ---
PD HPI CHEST PAIN - Stated complaint Stated Complaint: LOW BLOOD PRESSURE,SOA - Chief complaint Chief Complaint: Cardiac - History obtained from History obtained from: Patient, Family - History of Present Illness Timing - onset: Other (This is a 77-year-old gentleman who is about 2 months out from a TAVR done in [place]. Since then he has had significant weight loss, totaling little more than 30 pounds since associated with nausea fatigue and shortness of breath. Does not really feel like eating and he is dry heaving a lot. He has slight constipation but says that is probably just because he is not eating well. He has central lower chest pain especially when he takes a deep breath and a mild productive cough. He denies pedal edema or calf pain. No dark or tarry stools. He is on warfarin. He was having some low blood pressures down to about 70/40 in cardiac rehab and recently stopped his losartan last night and his metoprolol this morning for same. He denies fevers or chills.) Review of Systems Ten Systems: 10 systems reviewed and negative Constitutional: reports: Fatigue, Weight Loss. denies: Fever, Chills, Sweats Nose: denies: Rhinorrhea / runny nose, Congestion Throat: denies: Sore throat Cardiac: reports: Chest pain / pressure. denies: Palpitations, Pedal edema, Calf pain Respiratory: reports: Dyspnea, Cough PD PAST MEDICAL HISTORY - Past Medical History Cardiovascular: Murmur, Valve disorder (with aortic stenosis, and planned valvuloplasty) Respiratory: None Neuro: None Endocrine/Autoimmune: None : Renal insuffiency - Past Surgical History Past Surgical History: Yes Ortho: Carpal Tunnel surgery HEENT: Cataracts - Present Medications Home Medications: Ambulatory Orders Medication Instructions Recorded Confirmed Metoprolol Succinate [Toprol Xl] 25 mg PO DAILY PM 06/26/18 09/15/18 Albuterol Sulf [Ventolin Hfa 2 puffs INH PRN PRN 09/15/18 09/15/18 Inhaler] Atorvastatin Calcium 80 mg PO DAILY 09/15/18 09/15/18 Bumetanide 2 mg PO DAILY 09/15/18 09/15/18 Losartan Potassium 25 mg PO DAILY 09/15/18 09/15/18 Omeprazole 20 mg PO DAILY 09/15/18 09/15/18 Ticagrelor [Brilinta] 90 mg PO BID 09/15/18 09/15/18 Warfarin Sodium 5 mg PO DAILY 09/15/18 09/15/18 - Allergies Allergies/Adverse Reactions: Allergies Allergy/AdvReac Type Severity Reaction Status Date / Time Penicillins Allergy Unknown Verified 09/15/18 18:01 - Social History Does the pt smoke?: No Smoking Status: Former smoker Does the pt drink ETOH?: No Does the pt have substance abuse?: No - Immunizations Immunizations are current?: Yes - POLST Patient has POLST: No PD ED PE NORMAL - Vitals Vital signs reviewed: Yes - General General: Alert and oriented X 3, Other (Slightly bit pale and breathless) - HEENT HEENT: PERRL, EOMI - Neck Neck: Supple, no meningeal sign, No bony TTP - Cardiac Cardiac: RRR (Paced on the monitor), No murmur - Respiratory Respiratory: No respiratory distress, Other (Diminished at the right base) - Abdomen Abdomen: Soft, Non tender - Back Back: No CVA TTP, No spinal TTP - Derm Derm: Normal color, Warm and dry - Extremities Extremities: No edema, No calf tenderness / cord - Neuro Neuro: Alert and oriented X 3, Normal speech Results - Vitals Vitals: Vital Signs - 24 hr 09/15/18 09/15/18 09/15/18 17:54 18:26 18:32 Temperature 37.3 C Heart Rate 64 60 60 Respiratory 18 14 17 Rate Blood Pressure 106/58 L 102/46 L 102/53 L O2 Saturation 98 98 100 09/15/18 09/15/18 19:02 19:30 Temperature Heart Rate 67 66 Respiratory 15 16 Rate Blood Pressure 104/42 L 118/53 L O2 Saturation 97 98 Oxygen O2 Source Room air - EKG (time done) 1802 Rate: Rate (enter#) (61) Rhythm: Paced (atrial sensed, vpaced) Computer interpretation: Agree with computer - Labs Labs: Laboratory Tests 09/15/18 09/15/18 09/15/18 18:05 18:05 18:05 WBC 14.7 H RBC 3.85 L Hgb 11.9 L Hct 35.4 L MCV 91.9 MCH 30.9 MCHC 33.6 RDW 15.9 H Plt Count 234 MPV 10.7 Neut # (Auto) 9.9 H Lymph # (Auto) 1.2 L [place] # (Auto) 1.1 H Eos # (Auto) 2.4 H Baso # (Auto) 0.1 Absolute Nucleated RBC 0.00 Band Neuts % (Manual) Not Reportable Abnorm Lymph % (Manual) Not Reportable Nucleated RBC % 0.0 Neutrophils # (Manual) Not Reportable Lymphocytes # (Manual) Not Reportable Monocytes # (Manual) Not Reportable Eosinophils # (Manual) Not Reportable Basophils # (Manual) Not Reportable Differential Comment MANUAL=AUTO DIFF Manual Slide Review Indicated Platelet Estimate NORMAL (130-450,000) Platelet Morphology NORMAL APPEARANCE RBC Morph Micro Appear NORMAL APPEARANCE PT 60.1 H INR 5.4 H* Sodium 134 L Potassium 3.7 Chloride 94 L Carbon Dioxide 21 Anion Gap 19.0 H BUN 69 H Creatinine 4.9 H Estimated GFR (MDRD) 12 L Glucose 125 H Lactic Acid Calcium 8.1 L Total Bilirubin 4.3 H AST 242 H ALT 247 H Alkaline Phosphatase 1456 H Total Creatine Kinase 49 CK-MB (CK-2) Troponin I B-Natriuretic Peptide Total Protein 7.7 Albumin 3.1 L Globulin 4.6 H Albumin/Globulin Ratio 0.7 L Lipase 108 H 09/15/18 09/15/18 09/15/18 18:05 18:05 18:05 WBC RBC Hgb Hct MCV MCH MCHC RDW Plt Count MPV Neut # (Auto) Lymph # (Auto) [place] # (Auto) Eos # (Auto) Baso # (Auto) Absolute Nucleated RBC Band Neuts % (Manual) Abnorm Lymph % (Manual) Nucleated RBC % Neutrophils # (Manual) Lymphocytes # (Manual) Monocytes # (Manual) Eosinophils # (Manual) Basophils # (Manual) Differential Comment Manual Slide Review Platelet Estimate Platelet Morphology RBC Morph Micro Appear PT INR Sodium Potassium Chloride Carbon Dioxide Anion Gap BUN Creatinine Estimated GFR (MDRD) Glucose Lactic Acid 1.5 Calcium Total Bilirubin AST ALT Alkaline Phosphatase Total Creatine Kinase CK-MB (CK-2) 2.1 Troponin I 0.10 B-Natriuretic Peptide 376 H Total Protein Albumin Globulin Albumin/Globulin Ratio Lipase - Rads (name of study) 1v chest Radiology: EMP read contemporaneously (NAD) PD MEDICAL DECISION MAKING - ED course ED course: 77-year-old gentleman with recent TAVR presents with shortness of breath, weight loss, fatigue. Found to have supratherapeutic INR and acute on chronic renal failure. He appears slightly hypovolemic and was given 500 mL normal saline here. Given the complexity of his case [facility] was called for consult and potential transfer at 6:[address] Hernandez at 7 PM. He would like to consult with the rn physician office garbage collection supervisor there before accepting. They called shortly thereafter and formally accepted the patient, higinio completed. Departure - Departure Disposition: 02 Transfer Acute Care Hosp Clinical Impression: Supratherapeutic INR ARF (acute renal failure) Qualifiers: Acute renal failure type: unspecified Qualified Code(s): N17.9 - Acute kidney failure, unspecified Congestive heart failure Qualifiers: Heart failure type: unspecified Heart failure chronicity: acute on chronic Qualified Code(s): I50.9 - Heart failure, unspecified Condition: Serious
[2018-09-15 18:20] LABS: BASOPHILS # (AUTO) 0.1 10^3/uL (0.0-0.1); BASOPHILS % (AUTO) 0.5 %; EOSINOPHILS # (AUTO) 2.4 10^3/uL (0.0-0.7); EOSINOPHILS % (AUTO) 16.2 %; HGB - HEMOGLOBIN 11.9 g/dL (14.0-18.0); LYMPHOCYTES # (AUTO) 1.2 10^3/uL (1.5-3.5); LYMPHOCYTES % (AUTO) 7.8 %; MEAN CORPUSCULAR HEMOGLOBIN 30.9 pg (27.0-31.0); MEAN CORPUSCULAR HGB CONC 33.6 g/dL (32.0-36.0); MEAN CORPUSCULAR VOLUME 91.9 fL (80.0-94.0); MEAN PLATELET VOLUME 10.7 fL (7.4-11.4); MONOCYTES # (AUTO) 1.1 10^3/uL (0.0-1.0); MONOCYTES % (AUTO) 7.5 %; NEUTROPHILS # (AUTO) 9.9 10^3/uL (1.5-6.6); NEUTROPHILS % (AUTO) 67.5 %; PLT - PLATELET COUNT 234 10^3/uL (130-450); PT - PROTHROMBIN TIME 60.1 secs (9.9-12.6); RED BLOOD COUNT 3.85 10^6/uL (4.70-6.10); RED CELL DISTRIBUTION WIDTH 15.9 % (12.0-15.0); WHITE BLOOD COUNT 14.7 x10^3/uL (4.8-10.8)
--- NOTE | 2018-09-15 18:28 | XRAY Report ---
Reason: dyspnea cough Procedure Date: 09/15/2018 Accession Number: [id number] / [id number] Procedure: XR - Chest 1 View X-Ray CPT Code: 68813 FULL RESULT: EXAM: CHEST RADIOGRAPHY EXAM DATE: 09/15/2018 06:12 PM. CLINICAL HISTORY: Dyspnea cough. COMPARISON: CHEST 1 VIEW 06/27/2018 4:22 AM. TECHNIQUE: 1 view. FINDINGS: Lungs/Pleura: No focal opacities evident. No pleural effusion. No pneumothorax. Mediastinum: Heart and mediastinal contours are notable for aortic calcification. Left sided cardiac implant is in place with leads projecting over right atrium and right ventricular apex. Other: None. IMPRESSION: No acute cardiopulmonary abnormality demonstrated. RADIA
[2018-09-15 18:32] LABS: INR 5.4 (0.8-1.2); TROPONIN I 0.1 ng/mL (<0.49)
[2018-09-15 18:34] LABS: CREATINE KINASE MB 2.1 ng/mL (0.6-6.3)
[2018-09-15 18:36] LABS: ALBUMIN 3.1 g/dL (3.2-5.5); ALBUMIN/GLOBULIN RATIO 0.7 (1.0-2.2); BILIRUBIN,TOTAL 4.3 mg/dL (0.2-1.0); CALCIUM 8.1 mg/dL (8.5-10.3); CREATININE 4.9 mg/dL (0.6-1.2); TOTAL PROTEIN 7.7 g/dL (6.7-8.2)
[2018-09-15 18:42] LABS: PLATELET ESTIMATE, MANUAL NORMAL (130-450,000) (NORMAL); PLATELET MORPHOLOGY NORMAL APPEARANCE (NORMAL); RBC MORPHOLOGY (MULTIPLE) NORMAL APPEARANCE (NORMAL)
[2018-09-15 18:43] LABS: DIFFERENTIAL COMMENT MANUAL=AUTO DIFF
[2018-09-15] MEDS ORDERED: SODIUM CHLORIDE 0.9% 500 ML IV ONE (18:43)
[2018-09-15 21:00] VITALS: BP 109/53
== END 2018-09-15 20:58 | disposition short-term general hospital (02) ==
LOC: ED 17:50
DX: N17.9 Acute kidney failure, unspecified (principal); I50.9 Heart failure, unspecified; R94.31 Abnormal electrocardiogram [ECG] [EKG]; Z87.891 Personal history of nicotine dependence; Z79.01 Long term (current) use of anticoagulants
CPT/HCPCS: 71045; 80053; 82550; 82553; 83605; 83690; 83880; 84484; 85025; 85610; 93005; 96360; 99284

== ENCOUNTER 2018-09-23 12:13 | Outpatient (CLI) | payer MEDICARE, OTHER | END 2018-09-23 12:14 | disposition home or self-care (01) | LOC: LAB.S 12:13 | PROVIDERS: ATTEND Specialist | DX: I48.91 Unspecified atrial fibrillation (principal) | CPT/HCPCS: 85610 ==

== ENCOUNTER 2018-10-11 10:10 | Outpatient (CLI) | payer MEDICARE, OTHER | END 2018-10-11 10:11 | disposition home or self-care (01) | LOC: LAB.S 10:10 | PROVIDERS: ATTEND Specialist | DX: I48.91 Unspecified atrial fibrillation (principal) | CPT/HCPCS: 85610 ==

== ENCOUNTER 2018-10-18 12:24 | Outpatient (CLI) | payer MEDICARE, OTHER | END 2018-10-18 12:25 | disposition home or self-care (01) | LOC: LAB.S 12:24 | PROVIDERS: ATTEND Specialist | DX: I48.91 Unspecified atrial fibrillation (principal) | CPT/HCPCS: 85610 ==

== ENCOUNTER 2018-10-25 09:31 | Outpatient (CLI) | payer MEDICARE, OTHER | END 2018-10-25 09:32 | disposition home or self-care (01) | LOC: LAB.S 09:31 | PROVIDERS: ATTEND Specialist | DX: I48.91 Unspecified atrial fibrillation (principal) | CPT/HCPCS: 85610 ==

== ENCOUNTER 2018-11-01 10:35 | Outpatient (CLI) | payer MEDICARE, OTHER | END 2018-11-01 10:36 | disposition home or self-care (01) | LOC: LAB.S 10:35 | PROVIDERS: ATTEND Specialist | DX: I48.91 Unspecified atrial fibrillation (principal) | CPT/HCPCS: 85610 ==

== ENCOUNTER 2018-11-08 09:38 | Outpatient (CLI) | payer MEDICARE, OTHER ==
[2018-11-08 17:36] LABS: MEAN CORPUSCULAR HEMOGLOBIN 30.5 pg (27.0-31.0); MEAN CORPUSCULAR VOLUME 101.7 fL (80.0-94.0); MEAN PLATELET VOLUME 10.3 fL (7.4-11.4); RED BLOOD COUNT 3.61 10^6/uL (4.70-6.10); RED CELL DISTRIBUTION WIDTH 16.9 % (12.0-15.0); WHITE BLOOD COUNT 7.3 x10^3/uL (4.8-10.8)
[2018-11-08 17:40] LABS: ALBUMIN 3.7 g/dL (3.2-5.5); CALCIUM 8.7 mg/dL (8.5-10.3); CREATININE 1.1 mg/dL (0.6-1.2); PHOSPHORUS 3.1 mg/dL (2.5-4.6); URIC ACID 6.4 mg/dL (2.6-7.2)
[2018-11-08 17:44] LABS: CREATININE,URINE 50.6 mg/dL; PROTEIN/CREATININE RATIO,URINE 0.2 (<=0.2)
== END 2018-11-08 09:39 | disposition home or self-care (01) ==
LOC: LAB.S 09:38
PROVIDERS: ATTEND Internal Medicine Nephrology
DX: N17.9 Acute kidney failure, unspecified (principal); N18.3 Chronic kidney disease, stage 3 (moderate); I48.91 Unspecified atrial fibrillation
CPT/HCPCS: 36415; 80069; 82570; 83970; 84156; 84550; 85027; 85610

== ENCOUNTER 2018-11-15 09:19 | Outpatient (CLI) | payer MEDICARE, OTHER | END 2018-11-15 09:20 | disposition home or self-care (01) | LOC: LAB.S 09:19 | PROVIDERS: ATTEND Specialist | DX: I48.91 Unspecified atrial fibrillation (principal) | CPT/HCPCS: 85610 ==

== ENCOUNTER 2018-12-07 09:35 | Outpatient (CLI) | payer MEDICARE, OTHER ==
[2018-12-07 17:24] LABS: HGB - HEMOGLOBIN 12.3 g/dL (14.0-18.0); MEAN CORPUSCULAR HEMOGLOBIN 30.1 pg (27.0-31.0); MEAN CORPUSCULAR HGB CONC 30.8 g/dL (32.0-36.0); MEAN CORPUSCULAR VOLUME 97.8 fL (80.0-94.0); MEAN PLATELET VOLUME 10.6 fL (7.4-11.4); RED BLOOD COUNT 4.09 10^6/uL (4.70-6.10); RED CELL DISTRIBUTION WIDTH 14.4 % (12.0-15.0); WHITE BLOOD COUNT 8.4 x10^3/uL (4.8-10.8)
== END 2018-12-07 09:36 | disposition home or self-care (01) ==
LOC: LAB.S 09:35
PROVIDERS: ATTEND Internal Medicine
DX: D50.9 Iron deficiency anemia, unspecified (principal); R10.32 Left lower quadrant pain
CPT/HCPCS: 36415; 85027

== ENCOUNTER 2018-12-09 10:51 | Outpatient (CLI) | payer MEDICARE, OTHER | END 2018-12-09 10:52 | disposition home or self-care (01) | LOC: LAB.S 10:51 | PROVIDERS: ATTEND Specialist | DX: I48.91 Unspecified atrial fibrillation (principal) | CPT/HCPCS: 85610 ==

== ENCOUNTER 2018-12-10 10:34 | Outpatient (CLI) | payer MEDICARE, OTHER ==
[2018-12-10 10:52] LABS: BASOPHILS # (AUTO) 0.1 10^3/uL (0.0-0.1); BASOPHILS % (AUTO) 0.8 %; EOSINOPHILS # (AUTO) 0.8 10^3/uL (0.0-0.7); HGB - HEMOGLOBIN 12.3 g/dL (14.0-18.0); LYMPHOCYTES % (AUTO) 11.1 %; MEAN CORPUSCULAR HEMOGLOBIN 30.9 pg (27.0-31.0); MEAN CORPUSCULAR HGB CONC 32.1 g/dL (32.0-36.0); MEAN CORPUSCULAR VOLUME 96.2 fL (80.0-94.0); MEAN PLATELET VOLUME 10.1 fL (7.4-11.4); MONOCYTES # (AUTO) 0.8 10^3/uL (0.0-1.0); MONOCYTES % (AUTO) 8.2 %; NEUTROPHILS # (AUTO) 6.6 10^3/uL (1.5-6.6); NEUTROPHILS % (AUTO) 70.4 %; PLT - PLATELET COUNT 153 10^3/uL (130-450); RED BLOOD COUNT 3.98 10^6/uL (4.70-6.10); RED CELL DISTRIBUTION WIDTH 14.4 % (12.0-15.0); WHITE BLOOD COUNT 9.3 x10^3/uL (4.8-10.8)
[2018-12-10 11:05] LABS: ALBUMIN 3.4 g/dL (3.2-5.5); CALCIUM 8.5 mg/dL (8.5-10.3); CREATININE 1.1 mg/dL (0.6-1.2); TOTAL PROTEIN 6.9 g/dL (6.7-8.2)
[2018-12-12 16:31] LABS: HEPATITIS B SURFACE ANTIGEN NON-REACTIVE (NON-REACTIVE); HEPATITIS C ANTIBODY NON-REACTIVE (NON-REACTIVE)
== END 2018-12-10 10:35 | disposition home or self-care (01) ==
LOC: LAB 10:34
PROVIDERS: ATTEND Nurse Practitioner
DX: R53.83 Other fatigue (principal); R82.2 Biliuria
CPT/HCPCS: 36415; 80053; 85025; 86704; 86709; 86803; 87340

== ENCOUNTER 2018-12-13 11:46 | Outpatient (CLI) | payer MEDICARE, OTHER ==
[2018-12-13] MEDS ORDERED: IOVERSOL 320 100 ML VIAL IVP ONE ×2 (12:30→14:46)
--- NOTE | 2018-12-13 13:43 | CT Report ---
Reason: ELEVATED LFTS, JAUNDICE, ITCHING SKIN Procedure Date: 12/13/2018 Accession Number: [id number] / [id number] Procedure: CT - ABDOMEN W/WO CPT Code: FULL RESULT: EXAM: CT ABDOMEN WITHOUT AND WITH CONTRAST EXAM DATE: 12/13/2018 12:45 PM. HISTORY: ELEVATED LFTS, JAUNDICE, ITCHING SKIN. Pancreatic neoplasm on endoscopy. COMPARISON: None. TECHNIQUE: Routine helical CT imaging was performed through the abdomen before and after administration of IV contrast: OPTI 320 100ML. Enteric contrast: No. Reconstruction: Coronal and sagittal. In accordance with CT protocol optimization, one or more of the following dose reduction techniques were utilized for this exam: automated exposure control, adjustment of mA and/or KV based on patient size, or use of iterative reconstructive technique. FINDINGS: Lung Bases: Small layering right pleural effusion. Prior TAVR. Pacemaker noted. Mild cardiomegaly. Liver: Normal. No masses. Gallbladder/Bile Ducts: Contracted gallbladder with potential pericholecystic edema. No biliary ductal dilatation. Spleen: Borderline prominent volume. Spleen measures 11.9 cm, 333 cc. Pancreas: Partial fatty replacement of pancreas. No ductal dilatation. No mass evident by CT. Adrenal Glands: Normal. Kidneys: Left lower renal cyst. No suspicious masses or hydronephrosis. Peritoneal Cavity/Bowel: Normal. No free fluid, free air or adenopathy. No masses or acute inflammatory process. The appendix is well visualized and normal. Vasculature: Extensive atherosclerotic arterial calcifications. No abdominal aortic aneurysm. Series 6 image 21 raises concern for thrombosed recanalized umbilical vein. Bones: L3-L4 and L5-S1 degenerative changes. Other: None. IMPRESSION: 1. Small layering right pleural effusion. 2. Contracted gallbladder with potential pericholecystic edema. Consider ultrasound to assess for cholecystitis. 3. Borderline prominent splenic volume. 4. Series 6, image 21 raises concern for thrombosed recanalized umbilical vein. Question thrombophlebitis with subsequent umbilical vein recanalization and thrombosis. 5. Patient's known pain pancreatic mass on endoscopy was not identified by presence exam. KYLE The call report notification system was initiated by Dr. Ariel Chris at 01:27 PM on 12/13/2018. The above call report findings were discussed with LORI Thomas by Dr. Ariel Chris at 01:40 PM on 12/13/2018.
== END 2018-12-13 11:47 | disposition home or self-care (01) ==
LOC: DI 11:46
PROVIDERS: ATTEND Nurse Practitioner
DX: R17 Unspecified jaundice (principal); R74.8 Abnormal levels of other serum enzymes; L29.9 Pruritus, unspecified; J90 Pleural effusion, not elsewhere classified
CPT/HCPCS: 74170; Q9967

== ENCOUNTER 2018-12-14 11:13 | Outpatient (CLI) | payer MEDICARE, OTHER | END 2018-12-14 11:14 | disposition home or self-care (01) | LOC: LAB.S 11:13 | PROVIDERS: ATTEND Specialist | DX: I48.91 Unspecified atrial fibrillation (principal) | CPT/HCPCS: 85610 ==

== ENCOUNTER 2018-12-21 15:56 | Outpatient (CLI) | payer MEDICARE, OTHER | END 2018-12-21 15:57 | disposition home or self-care (01) | LOC: LAB.S 15:56 | PROVIDERS: ATTEND Specialist | DX: I48.91 Unspecified atrial fibrillation (principal) | CPT/HCPCS: 85610 ==

== ENCOUNTER 2018-12-23 17:35 | Emergency (ER) | payer MEDICARE, OTHER ==
--- NOTE | 2018-12-23 20:36 | ED Physician Documentation ---
PD HPI OPHTHO - Stated complaint Stated Complaint: RT EYE INJ - Chief complaint Chief Complaint: Heent - History obtained from History obtained from: Patient, Family - History of Present Illness Timing - onset: How many days ago (2) Timing - duration: Days (2) Timing - details: Gradual onset, Still present Location: Right Quality / character: Itching, Aching Associated symptoms: Redness, Swelling. No: Discharge, Matting, FB sensation, Photophobia, Double vision, Decreased vision, Loss of vision, Headache Contributing factors: Other (rubbing eyes with allergies) Similar symptoms before: Has not had sx before Recently seen: Not recently seen - Additional information Additional information: Previously well 78-year-old male on Coumadin has developed some pain in his right eye he has been rubbing his eye a bit more than usual with seasonal allergies. He has been taking some OTC antihistamine with some improvement. Today he has noticed redness and swelling to the sclera. Review of Systems Constitutional: denies: Fever, Chills Eyes: reports: Irritation. denies: Loss of vision, Decreased vision, Photophobia, Discharge Ears: denies: Ear pain Nose: reports: Rhinorrhea / runny nose. denies: Congestion Throat: denies: Sore throat Cardiac: denies: Chest pain / pressure, Palpitations Respiratory: denies: Dyspnea, Cough GI: denies: Abdominal Pain, Nausea, Vomiting : denies: Dysuria, Frequency Skin: reports: Other (itching). denies: Rash Musculoskeletal: denies: Neck pain, Back pain, Extremity pain Neurologic: denies: Generalized weakness, Focal weakness, Numbness PD PAST MEDICAL HISTORY - Past Medical History Cardiovascular: Murmur, Valve disorder Respiratory: None Neuro: None Endocrine/Autoimmune: None GI: None : Renal insuffiency HEENT: Chronic hearing loss Psych: Depression Musculoskeletal: None Derm: None - Past Surgical History Past Surgical History: Yes General: Colonoscopy Ortho: Carpal Tunnel surgery Cardiovascular: Valve replacement HEENT: Cataracts - Present Medications Home Medications: Ambulatory Orders Medication Instructions Recorded Confirmed Metoprolol Succinate [Toprol Xl] 25 mg PO DAILY PM 06/26/18 09/15/18 Albuterol Sulf [Ventolin Hfa 2 puffs INH PRN PRN 09/15/18 09/15/18 Inhaler] Atorvastatin Calcium 80 mg PO DAILY 09/15/18 09/15/18 Bumetanide 2 mg PO DAILY 09/15/18 09/15/18 Losartan Potassium 25 mg PO DAILY 09/15/18 09/15/18 Omeprazole 20 mg PO DAILY 09/15/18 09/15/18 Ticagrelor [Brilinta] 90 mg PO BID 09/15/18 09/15/18 Warfarin Sodium 5 mg PO DAILY 09/15/18 09/15/18 - Allergies Allergies/Adverse Reactions: Allergies Allergy/AdvReac Type Severity Reaction Status Date / Time mint Allergy Unknown Verified 12/23/18 17:45 Penicillins Allergy Unknown Verified 12/23/18 17:45 - Social History Does the pt smoke?: No Smoking Status: Never smoker Does the pt drink ETOH?: No Does the pt have substance abuse?: No - Immunizations Immunizations are current?: Yes - POLST Patient has POLST: No PD ED PE NORMAL - Vitals Vital signs reviewed: Yes (hypertensive mild ) - General General: Alert and oriented X 3, No acute distress, Well developed/nourished - HEENT HEENT: Atraumatic, Other (There is an impressive subconjunctival bleed on the right side. There is no hyphema and the remainder of the eye exam is unremarkable. ) - Neck Neck: Supple, no meningeal sign, No bony TTP - Cardiac Cardiac: RRR, No murmur - Respiratory Respiratory: No respiratory distress, Clear bilaterally - Back Back: No CVA TTP, No spinal TTP - Derm Derm: Normal color, Warm and dry, No rash - Extremities Extremities: No deformity, No edema - Neuro Neuro: Alert and oriented X 3, No motor deficit, No sensory deficit, Normal speech Eye Opening: Spontaneous Motor: Obeys Commands Verbal: Oriented GCS Score: 15 - Psych Psych: Normal mood, Normal affect Results - Vitals Vitals: Vital Signs - 24 hr 12/23/18 17:38 Temperature 36.8 C Heart Rate 81 Respiratory 18 Rate Blood Pressure 143/59 H O2 Saturation 99 Oxygen O2 Source Room air - Labs Labs: Laboratory Tests 12/23/18 18:59 Whole Blood INR 1.6 H PD MEDICAL DECISION MAKING - ED course Complexity details: reviewed results, re-evaluated patient, considered differential, d/w patient, d/w family ED course: 78-year-old male on Coumadin with a subconjunctival hemorrhage has an INR of 1.6. No specific therapy is indicated at this time. The patient is reassured and I have asked him to follow-up with Dr. Vasquez the transitional care liaison as he has been having some issue with his eyesight in the right eye for the past year. He is previously had cataract removal and lens implant. Departure - Departure Disposition: 01 Home, Self Care Clinical Impression: Subconjunctival bleed Qualifiers: Laterality: right Qualified Code(s): H11.31 - Conjunctival hemorrhage, right eye Condition: Stable Instructions: ED Eye Injury Subconj Hemorrhage Follow-Up: José Lombardo MD [Primary Care Provider] - Javier Vasquez MD [Provider Admit Priv/Credential] -
[2018-12-23 20:49] VITALS: BP 145/75
== END 2018-12-23 20:49 | disposition home or self-care (01) ==
LOC: ED 17:35
DX: H11.31 Conjunctival hemorrhage, right eye (principal); Z79.01 Long term (current) use of anticoagulants; Z95.2 Presence of prosthetic heart valve
CPT/HCPCS: 85610; 99283; 99284

== ENCOUNTER 2018-12-28 11:04 | Outpatient (CLI) | payer MEDICARE, OTHER | END 2018-12-28 11:05 | disposition home or self-care (01) | LOC: LAB.S 11:04 | PROVIDERS: ATTEND Specialist | DX: I48.91 Unspecified atrial fibrillation (principal) | CPT/HCPCS: 85610 ==

== ENCOUNTER 2019-01-04 09:30 | Outpatient (CLI) | payer MEDICARE, OTHER ==
[2019-01-04 17:35] LABS: AMYLASE 62 U/L (28-100); LIPASE 37 U/L (22-51)
== END 2019-01-04 09:31 | disposition home or self-care (01) ==
LOC: LAB.S 09:30
PROVIDERS: ATTEND Specialist
DX: C7A.8 Other malignant neuroendocrine tumors (principal); D50.9 Iron deficiency anemia, unspecified; I48.91 Unspecified atrial fibrillation
CPT/HCPCS: 36415; 82150; 83690; 85610

== ENCOUNTER 2019-01-11 10:26 | Outpatient (CLI) | payer MEDICARE, OTHER ==
[2019-01-11 17:52] LABS: HGB - HEMOGLOBIN 13.6 g/dL (14.0-18.0); MEAN CORPUSCULAR HEMOGLOBIN 30.3 pg (27.0-31.0); MEAN CORPUSCULAR HGB CONC 31.3 g/dL (32.0-36.0); MEAN CORPUSCULAR VOLUME 96.9 fL (80.0-94.0); MEAN PLATELET VOLUME 11.7 fL (7.4-11.4); RED BLOOD COUNT 4.49 10^6/uL (4.70-6.10); RED CELL DISTRIBUTION WIDTH 15.3 % (12.0-15.0); WHITE BLOOD COUNT 7.5 x10^3/uL (4.8-10.8)
[2019-01-11 18:20] LABS: ALBUMIN 3.4 g/dL (3.2-5.5); ALKALINE PHOSPHATASE 448 IU/L (42-121); ALT ALANINE AMINOTRANSFERASE 55 IU/L (10-60); AST ASPARTATE AMINOTRANSFERASE 51 IU/L (10-42); BILIRUBIN,TOTAL 1.4 mg/dL (0.2-1.0); BUN - BLOOD UREA NITROGEN 20 mg/dL (6-20); CALCIUM 9.8 mg/dL (8.5-10.3); CARBON DIOXIDE - CO2 26 mmol/L (21-32); CHLORIDE 110 mmol/L (101-111); CHOL/HDL RATIO 2.2 (<5.0); CHOLESTEROL 171 mg/dL; CREATININE 0.9 mg/dL (0.6-1.2); GFR - MDRD 81 (>89); GLUCOSE 110 mg/dL (70-100); HDL CHOLESTEROL 78 mg/dL; LDL CHOLESTEROL,CALCULATED 82 mg/dL; LDL/HDL RATIO 1.1 (<3.6); SODIUM 142 mmol/L (135-145); TOTAL PROTEIN 6.8 g/dL (6.7-8.2); VLDL CHOLESTEROL 11 mg/dL
== END 2019-01-11 10:27 | disposition home or self-care (01) ==
LOC: LAB.S 10:26
PROVIDERS: ATTEND Internal Medicine Cardiovascular Disease
DX: D37.8 Neoplasm of uncertain behavior of other specified digestive organs (principal); E78.5 Hyperlipidemia, unspecified; I48.91 Unspecified atrial fibrillation; I50.20 Unspecified systolic (congestive) heart failure; I25.9 Chronic ischemic heart disease, unspecified; I35.9 Nonrheumatic aortic valve disorder, unspecified
CPT/HCPCS: 36415; 80053; 80061; 83721; 85027; 85610

== ENCOUNTER 2019-01-18 09:43 | Outpatient (CLI) | payer MEDICARE, OTHER | END 2019-01-18 09:44 | disposition home or self-care (01) | LOC: LAB.S 09:43 | PROVIDERS: ATTEND Specialist | DX: I48.91 Unspecified atrial fibrillation (principal) | CPT/HCPCS: 85610 ==

== ENCOUNTER 2019-02-08 08:16 | Outpatient (CLI) | payer MEDICARE, OTHER | END 2019-02-08 08:17 | disposition home or self-care (01) | LOC: LAB.S 08:16 | PROVIDERS: ATTEND Specialist | DX: I48.91 Unspecified atrial fibrillation (principal) | CPT/HCPCS: 85610 ==

== ENCOUNTER 2019-03-02 09:04 | Outpatient (CLI) | payer MEDICARE, OTHER | END 2019-03-02 09:05 | disposition home or self-care (01) | LOC: LAB.S 09:04 | PROVIDERS: ATTEND Specialist | DX: I48.91 Unspecified atrial fibrillation (principal) | CPT/HCPCS: 85610 ==

== ENCOUNTER 2019-03-30 11:49 | Outpatient (CLI) | payer MEDICARE, OTHER | END 2019-03-30 11:50 | disposition home or self-care (01) | LOC: LAB.S 11:49 | PROVIDERS: ATTEND Specialist | DX: I48.91 Unspecified atrial fibrillation (principal) | CPT/HCPCS: 85610 ==

== ENCOUNTER 2019-04-13 09:37 | Outpatient (CLI) | payer MEDICARE, OTHER | END 2019-04-13 09:38 | disposition home or self-care (01) | LOC: LAB.S 09:37 | PROVIDERS: ATTEND Specialist | DX: I48.91 Unspecified atrial fibrillation (principal) | CPT/HCPCS: 85610 ==

== ENCOUNTER 2019-04-27 09:41 | Outpatient (CLI) | payer MEDICARE, OTHER | END 2019-04-27 09:42 | disposition home or self-care (01) | LOC: LAB.S 09:41 | PROVIDERS: ATTEND Specialist | DX: I48.91 Unspecified atrial fibrillation (principal) | CPT/HCPCS: 85610 ==

== ENCOUNTER 2019-05-09 10:15 | Outpatient (CLI) | payer MEDICARE, OTHER | END 2019-05-09 10:16 | disposition home or self-care (01) | LOC: DI 10:15 | PROVIDERS: ATTEND Specialist | DX: I48.91 Unspecified atrial fibrillation (principal); I25.10 Atherosclerotic heart disease of native coronary artery without angina pectoris; Z95.2 Presence of prosthetic heart valve; I10 Essential (primary) hypertension; I34.0 Nonrheumatic mitral (valve) insufficiency | CPT/HCPCS: 93306 ==

== ENCOUNTER 2019-05-18 09:23 | Outpatient (CLI) | payer MEDICARE, OTHER | END 2019-05-18 09:24 | disposition home or self-care (01) | LOC: LAB.S 09:23 | PROVIDERS: ATTEND Specialist | DX: I48.91 Unspecified atrial fibrillation (principal) | CPT/HCPCS: 85610 ==

== ENCOUNTER 2019-05-25 10:42 | Outpatient (CLI) | payer MEDICARE, OTHER | END 2019-05-25 10:43 | disposition home or self-care (01) | LOC: LAB.S 10:42 | PROVIDERS: ATTEND Specialist | DX: I48.91 Unspecified atrial fibrillation (principal) | CPT/HCPCS: 85610 ==

== ENCOUNTER 2019-05-28 03:34 | Emergency (ER) | payer MEDICARE, OTHER ==
--- NOTE | 2019-05-28 03:41 | ED Physician Documentation ---
History of Present Illness - Stated complaint Stated Complaint: L LEG PAIN - Chief complaint Chief Complaint: Ext Problem - History obtained from History obtained from: Patient (The patient is an 78-year-old male who presents with left hip pain that started 3 days ago he noticed it after he did try to stand up from his recliner he denies any falls or trauma denies any history of AAA or ischemic limb disease. describes his left hip pain as pain that radiates down below the left knee.He denies any bowel or bladder dysfunction or any saddle anesthesia denies any history of IV drug abuse and denies any history of spinal surgery. denies any history of dvt or pe, denies cp or sob.) Review of Systems Ten Systems: 10 systems reviewed and negative Constitutional: reports: Reviewed and negative Eyes: reports: Reviewed and negative Ears: reports: Reviewed and negative Nose: reports: Reviewed and negative Throat: reports: Reviewed and negative Cardiac: reports: Reviewed and negative Respiratory: reports: Reviewed and negative GI: reports: Reviewed and negative : reports: Reviewed and negative Skin: reports: Reviewed and negative Musculoskeletal: reports: Joint pain Neurologic: reports: Reviewed and negative Psychiatric: reports: Reviewed and negative Endocrine: reports: Reviewed and negative Immunocompromised: reports: Reviewed and negative PD PAST MEDICAL HISTORY - Past Medical History Cardiovascular: Murmur, Valve disorder Respiratory: None Neuro: None Endocrine/Autoimmune: None GI: None : Renal insuffiency HEENT: Chronic hearing loss Psych: Depression Musculoskeletal: None Derm: None - Past Surgical History Past Surgical History: Yes General: Colonoscopy Ortho: Carpal Tunnel surgery Cardiovascular: Valve replacement HEENT: Cataracts - Present Medications Home Medications: Ambulatory Orders Medication Instructions Recorded Confirmed Metoprolol Succinate [Toprol Xl] 25 mg PO DAILY PM 06/26/18 05/28/19 Albuterol Sulf [Ventolin Hfa 2 puffs INH PRN PRN 09/15/18 05/28/19 Inhaler] Atorvastatin Calcium 80 mg PO DAILY 09/15/18 05/28/19 Bumetanide 2 mg PO DAILY 09/15/18 05/28/19 Losartan Potassium 25 mg PO DAILY 09/15/18 05/28/19 Omeprazole 20 mg PO DAILY 09/15/18 05/28/19 Ticagrelor [Brilinta] 90 mg PO BID 09/15/18 05/28/19 Warfarin Sodium 5 mg PO DAILY 09/15/18 05/28/19 Hydrocodone/Acetaminophen [[place] 1 each PO Q6HR PRN #7 tablet 05/28/19 5-325 Tablet] - Allergies Allergies/Adverse Reactions: Allergies Allergy/AdvReac Type Severity Reaction Status Date / Time mint Allergy Unknown Verified 05/28/19 03:42 Penicillins Allergy Unknown Verified 05/28/19 03:42 - Social History Does the pt smoke?: No Smoking Status: Never smoker Does the pt drink ETOH?: No Does the pt have substance abuse?: No - Immunizations Immunizations are current?: Yes - POLST Patient has POLST: No PD ED PE NORMAL - Vitals Vital signs reviewed: Yes - General General: Alert and oriented X 3, No acute distress, Well developed/nourished - HEENT HEENT: Atraumatic, PERRL, Moist mucous membranes, Pharynx benign - Neck Neck: Supple, no meningeal sign, No JVD - Cardiac Cardiac: RRR, No murmur, Strong equal pulses - Respiratory Respiratory: No respiratory distress, Clear bilaterally - Abdomen Abdomen: Normal bowel sounds, Soft, Non tender, Non distended - Derm Derm: Warm and dry - Extremities Extremities: No deformity, No edema, No calf tenderness / cord, Other (There is point tenderness to the greater trochanter of the left hip. There is pain on flexion of the hip as well as extension as well as internal and external rotation and abduction abduction of the left hip there is no gross deformity there is no leg length discrepancy his DP and PT pulses are 2+ and symmetric cap refills less than 2 seconds compartments are soft is neurovascular intact his skin is warm.He is able to ambulate and bear weight.) - Neuro Neuro: Alert and oriented X 3 - Psych Psych: Normal mood, Normal affect Results - Vitals Vitals: Vital Signs - 24 hr 05/28/19 03:39 Temperature 36.9 C Heart Rate 69 Respiratory 16 Rate Blood Pressure 141/76 H O2 Saturation 98 Oxygen O2 Source Room air PD MEDICAL DECISION MAKING - ED course Complexity details: re-evaluated patient (X-ray of the left hip shows severe left hip osteoarthritis Doppler ultrasound is negative for deep vein thrombosis. Patient will be encouraged to follow-up with his primary care provider tomorrow.), considered differential (Sciatica, hip arthritis, greater trochanteric bursitis), d/w patient, d/w family Departure - Departure Disposition: 01 Home, Self Care Clinical Impression: Left hip pain Hip osteoarthritis Qualifiers: Osteoarthritis type: unspecified Laterality: left Qualified Code(s): M16.12 - Unilateral primary osteoarthritis, left hip Condition: Stable Instructions: Hip Osteoarthritis Follow-Up: oJsé Lombardo MD [Primary Care Provider] - Tomorrow Prescriptions: Hydrocodone/Acetaminophen [[place] 5-325 Tablet] 1 each PO Q6HR PRN #7 tablet PRN Reason: Pain
[2019-05-28 03:42] VITALS: BP 141/76
[2019-05-28] MEDS ORDERED: HYDROcod/ACETAM 5/325 MG TABLET PO STA (04:22)
--- NOTE | 2019-05-28 04:42 | XRAY Report ---
Reason: left hip pain Procedure Date: 05/28/2019 Accession Number: [id number] / [id number] Procedure: XR - Hip w/Pelvis 2-3V LT CPT Code: Final Report FULL RESULT: EXAM: LEFT HIP RADIOGRAPHY EXAM DATE: 05/28/2019 04:31 AM. CLINICAL HISTORY: Left hip pain. COMPARISON: None. TECHNIQUE: 2 views. FINDINGS: Bones: Ovoid deformity of the femoral head. No fractures or bone lesion. Joints: Severe cartilage loss, marginal osteophyte formation, subchondral sclerosis, and cyst formation at the left hip. Mild osteoarthritis with marginal osteophyte formation at the right hip. Soft Tissues: Normal. No soft tissue swelling. IMPRESSION: Severe left hip osteoarthritis. RADIA
--- NOTE | 2019-05-28 05:39 | Ultrasound Report ---
Reason: dvt Procedure Date: 05/28/2019 Accession Number: [id number] / [id number] Procedure: US - Duplex Ext Veins Left CPT Code: Final Report FULL RESULT: EXAM: LEFT LOWER EXTREMITY VENOUS ULTRASOUND EXAM DATE: 05/28/2019 05:32 AM. CLINICAL HISTORY: Dvt. COMPARISON: None. TECHNIQUE: Real-time sonographic vascular imaging was performed by the crusher setter through the lower extremity utilizing both color-flow and Doppler spectral analysis. Multiple business office representative static images were saved for review. FINDINGS: Common Femoral Vein (CFV): Normal. CFV-GSV Junction: Normal. Profunda Femoral Vein (PFV): Normal. Femoral Vein (FV) Prox: Normal. Femoral Vein (FV) Mid: Normal. Femoral Vein (FV) Dist: Normal. Popliteal Vein: Normal. Posterior Tibial Veins: Normal. Peroneal Veins: Normal. Other: None. IMPRESSION: No evidence for deep venous thrombosis. RADIA
== END 2019-05-28 06:03 | disposition home or self-care (01) ==
LOC: ED 03:34
DX: M16.12 Unilateral primary osteoarthritis, left hip (principal); M79.605 Pain in left leg; Z79.01 Long term (current) use of anticoagulants; Z95.2 Presence of prosthetic heart valve
CPT/HCPCS: 73502; 93971; 99284; A9270

== ENCOUNTER 2019-06-08 09:29 | Outpatient (CLI) | payer MEDICARE, OTHER ==
[2019-06-08 16:10] LABS: BASOPHILS # (AUTO) 0.1 10^3/uL (0.0-0.1); BASOPHILS % (AUTO) 0.6 %; EOSINOPHILS # (AUTO) 0.5 10^3/uL (0.0-0.7); EOSINOPHILS % (AUTO) 5.2 %; HGB - HEMOGLOBIN 14.9 g/dL (14.0-18.0); LYMPHOCYTES # (AUTO) 1.9 10^3/uL (1.5-3.5); LYMPHOCYTES % (AUTO) 20.4 %; MEAN CORPUSCULAR HGB CONC 31.1 g/dL (32.0-36.0); MEAN CORPUSCULAR VOLUME 96.6 fL (80.0-94.0); MEAN PLATELET VOLUME 10.5 fL (7.4-11.4); MONOCYTES # (AUTO) 0.8 10^3/uL (0.0-1.0); MONOCYTES % (AUTO) 8.4 %; NEUTROPHILS # (AUTO) 6.2 10^3/uL (1.5-6.6); NEUTROPHILS % (AUTO) 64.9 %; PLT - PLATELET COUNT 182 10^3/uL (130-450); RED BLOOD COUNT 4.96 10^6/uL (4.70-6.10); RED CELL DISTRIBUTION WIDTH 13.6 % (12.0-15.0); WHITE BLOOD COUNT 9.5 x10^3/uL (4.8-10.8)
[2019-06-08 16:16] LABS: CALCIUM 8.7 mg/dL (8.5-10.3); CREATININE 1.1 mg/dL (0.6-1.2)
== END 2019-06-08 09:30 | disposition home or self-care (01) ==
LOC: LAB.S 09:29
PROVIDERS: ATTEND Specialist
DX: I48.91 Unspecified atrial fibrillation (principal); Z95.818 Presence of other cardiac implants and grafts
CPT/HCPCS: 36415; 80048; 85025; 85610

== ENCOUNTER 2019-06-21 08:38 | Outpatient (CLI) | payer MEDICARE, OTHER | END 2019-06-21 08:39 | disposition home or self-care (01) | LOC: LAB 08:38 | PROVIDERS: ATTEND Specialist | DX: I48.91 Unspecified atrial fibrillation (principal) | CPT/HCPCS: 85610 ==

== ENCOUNTER 2019-06-30 10:57 | Outpatient (CLI) | payer MEDICARE, OTHER | END 2019-06-30 10:58 | disposition home or self-care (01) | LOC: LAB 10:57 | PROVIDERS: ATTEND Specialist | DX: I48.91 Unspecified atrial fibrillation (principal) | CPT/HCPCS: 85610 ==

== ENCOUNTER 2019-07-21 10:04 | Outpatient (CLI) | payer MEDICARE, OTHER | END 2019-07-21 10:05 | disposition home or self-care (01) | LOC: LAB 10:04 | PROVIDERS: ATTEND Specialist | DX: I48.91 Unspecified atrial fibrillation (principal) | CPT/HCPCS: 85610 ==

== ENCOUNTER 2019-08-11 11:50 | Outpatient (CLI) | payer MEDICARE, OTHER | END 2019-08-11 11:51 | disposition home or self-care (01) | LOC: LAB 11:50 | PROVIDERS: ATTEND Internal Medicine Cardiovascular Disease | DX: I48.91 Unspecified atrial fibrillation (principal) | CPT/HCPCS: 85610 ==

== ENCOUNTER 2019-08-15 09:47 | Outpatient (CLI) | payer MEDICARE, OTHER ==
[2019-08-15 10:18] LABS: BASOPHILS % (AUTO) 0.6 %; EOSINOPHILS # (AUTO) 0.3 10^3/uL (0.0-0.7); EOSINOPHILS % (AUTO) 4.6 %; HGB - HEMOGLOBIN 15.1 g/dL (14.0-18.0); LYMPHOCYTES # (AUTO) 1.5 10^3/uL (1.5-3.5); MEAN CORPUSCULAR HGB CONC 33.2 g/dL (32.0-36.0); MEAN CORPUSCULAR VOLUME 96.4 fL (80.0-94.0); MEAN PLATELET VOLUME 9.9 fL (7.4-11.4); MONOCYTES # (AUTO) 0.6 10^3/uL (0.0-1.0); MONOCYTES % (AUTO) 8.3 %; NEUTROPHILS # (AUTO) 4.6 10^3/uL (1.5-6.6); NEUTROPHILS % (AUTO) 64.9 %; PLT - PLATELET COUNT 148 10^3/uL (130-450); RED BLOOD COUNT 4.72 10^6/uL (4.70-6.10); RED CELL DISTRIBUTION WIDTH 13.1 % (12.0-15.0)
[2019-08-15 10:20] LABS: PT - PROTHROMBIN TIME 32.1 secs (9.9-12.6)
[2019-08-15 10:23] LABS: CALCIUM 8.7 mg/dL (8.5-10.3)
== END 2019-08-15 09:48 | disposition home or self-care (01) ==
LOC: LAB 09:47
PROVIDERS: ATTEND Specialist
DX: Z11.59 Encounter for screening for other viral diseases (principal); Z95.818 Presence of other cardiac implants and grafts
CPT/HCPCS: 36415; 80048; 85025; 85610; U0004; 81599

== ENCOUNTER 2020-08-27 08:00 | Outpatient (CLI) | payer MEDICARE, OTHER ==
--- NOTE | 2020-08-27 11:59 | XRAY Report ---
PROCEDURE: Chest 2 View X-Ray INDICATIONS: CHEST CONGESTION TECHNIQUE: 2 view(s) of the chest. COMPARISON: Chest x-ray, 1 view, 09/15/2018. FINDINGS: Surgical changes and devices: There is a cardiac pacemaker in appropriate position. Aortic valve pros thesis is noted. Lungs and pleura: No pleural effusions or pneumothorax. Lungs are clear. There is a 6 mm nodular d ensity in the left lower lobe, not seen on the prior exam dated 09/15/2018. Mediastinum: Mediastinal contours are normal. Heart size is normal. Bones and chest wall: No suspicious bony abnormalities. Soft tissues appear unremarkable. IMPRESSION: 1. No acute cardiopulmonary disease. 2. A 6 mm left lower lobe nodule was not seen on the prior exam. A nonemergent chest CT is suggested for follow-up. Reviewed by: Charlene Castillo MD on 08/27/2020 11:58 AM PDT Approved by: Charlene Castillo MD on 08/27/2020 11:58 AM PDT Station ID: [id number]
== END 2020-08-27 23:59 | disposition home or self-care (01) ==
LOC: DI.S 08:00
PROVIDERS: ATTEND Physician Assistant
DX: R09.89 Other specified symptoms and signs involving the circulatory and respiratory systems (principal)

== ENCOUNTER 2020-09-18 11:01 | Outpatient (CLI) | payer MEDICARE, OTHER ==
[2020-09-18 15:13] LABS: BASOPHILS % (AUTO) 0.5 %; EOSINOPHILS # (AUTO) 0.5 10^3/uL (0.0-0.7); EOSINOPHILS % (AUTO) 6.1 %; HGB - HEMOGLOBIN 15.7 g/dL (14.0-18.0); LYMPHOCYTES # (AUTO) 1.5 10^3/uL (1.5-3.5); MEAN CORPUSCULAR HEMOGLOBIN 31.5 pg (27.0-31.0); MEAN CORPUSCULAR VOLUME 98.4 fL (80.0-94.0); MEAN PLATELET VOLUME 9.9 fL (7.4-11.4); MONOCYTES # (AUTO) 0.5 10^3/uL (0.0-1.0); NEUTROPHILS # (AUTO) 6.2 10^3/uL (1.5-6.6); NEUTROPHILS % (AUTO) 69.9 %; PLT - PLATELET COUNT 147 10^3/uL (130-450); RED BLOOD COUNT 4.98 10^6/uL (4.70-6.10); RED CELL DISTRIBUTION WIDTH 13.2 % (12.0-15.0); WHITE BLOOD COUNT 8.8 x10^3/uL (4.8-10.8)
[2020-09-18 15:39] LABS: ALBUMIN 3.9 g/dL (3.2-5.5); ALBUMIN/GLOBULIN RATIO 1.3 (1.0-2.2); ALKALINE PHOSPHATASE 64 IU/L (42-121); ALT ALANINE AMINOTRANSFERASE 19 IU/L (10-60); AST ASPARTATE AMINOTRANSFERASE 20 IU/L (10-42); BUN - BLOOD UREA NITROGEN 21 mg/dL (6-20); CARBON DIOXIDE - CO2 30 mmol/L (21-32); CHLORIDE 104 mmol/L (101-111); CHOL/HDL RATIO 3.3 (<5.0); CHOLESTEROL 154 mg/dL; GFR - MDRD 72 (>89); GLUCOSE 117 mg/dL (70-100); HDL CHOLESTEROL 47 mg/dL; LDL CHOLESTEROL,CALCULATED 81 mg/dL; LDL/HDL RATIO 1.7 (<3.6); POTASSIUM 4.1 mmol/L (3.5-5.0); SODIUM 142 mmol/L (135-145); TOTAL PROTEIN 6.8 g/dL (6.7-8.2); TRIGLYCERIDES 130 mg/dL; VLDL CHOLESTEROL 26 mg/dL
== END 2020-09-18 11:02 | disposition home or self-care (01) ==
LOC: LAB.S 11:01
PROVIDERS: ATTEND Internal Medicine
DX: I10 Essential (primary) hypertension (principal); E78.5 Hyperlipidemia, unspecified
CPT/HCPCS: 36415; 80053; 80061; 83721; 85025

== ENCOUNTER 2020-10-03 12:50 | Outpatient (CLI) | payer MEDICARE, OTHER ==
--- NOTE | 2020-10-03 17:02 | CT Report ---
PROCEDURE: CHEST WO INDICATIONS: PULMONARY NODULE TECHNIQUE: Noncontrast images were acquired from the pulmonary apices to the posterior costophrenic angles. Mul tiplanar MIP reformats were then acquired. For radiation dose reduction, the following was used: au tomated exposure control, adjustment of mA and/or kV according to patient size. COMPARISON: Chest x-ray 08/27/2020, CT abdomen 12/13/2018 FINDINGS: Image quality: Excellent. Lungs and pleura: There is a small left lower lobe nodule along the left hemidiaphragm measuring up to 6 mm on series 4 image 245. This appears stable in size compared to the prior abdominal CT. Elsewh ere, no discrete pulmonary nodule is identified to correlate with the nodular opacity on recent chest x-ray. There is minimal scarring and atelectasis in the lung bases. No acute consolidation. No pleur al effusions or pneumothorax. Central and peripheral airways are patent and normal in caliber. Mediastinum: There is a left chest wall pacemaker with leads extending to the right atrium and right ventricle. A prosthetic aortic valve is noted. There is also a filter device in the region of the le ft atrial appendage. Heart size is normal. No pericardial effusion. There is moderate coronary thora cic calcification. No mediastinal adenopathy by size criteria. Thoracic aorta and central pulmonary arteries are normal in size. Esophagus is normal in caliber. No hiatal hernia. Bones and chest wall: No suspicious bony lesions. No vertebral body compression fractures. No axil chapis or supraclavicular adenopathy by size criteria. Abdomen: Visualized upper abdomen demonstrates fatty mild atrophy of the pancreas. IMPRESSION: 1. No discrete bony nodule identified to correlate with the nodular opacity on recent x-ray. The find ings likely represented confluence of vascular and bony structures. 2. Small left lower lobe nodule along the left hemidiaphragm appears stable in size compared to the p rior CT and is benign given stability over time. Reviewed by: Vamsi Dong MD on 10/03/2020 5:00 PM PDT Approved by: Vamsi Dong MD on 10/03/2020 5:00 PM PDT Station ID: [id number]
== END 2020-10-03 12:51 | disposition home or self-care (01) ==
LOC: DI 12:50
PROVIDERS: ATTEND Internal Medicine
DX: R91.1 Solitary pulmonary nodule (principal)

== ENCOUNTER 2021-09-26 11:11 | Outpatient (CLI) | payer MEDICARE, OTHER ==
[2021-09-26 15:11] LABS: BASOPHILS # (AUTO) 0.1 10^3/uL (0.0-0.1); BASOPHILS % (AUTO) 0.7 %; EOSINOPHILS # (AUTO) 0.3 10^3/uL (0.0-0.7); EOSINOPHILS % (AUTO) 4.1 %; HCT - HEMATOCRIT 48.8 % (42.0-52.0); LYMPHOCYTES # (AUTO) 1.5 10^3/uL (1.5-3.5); MEAN CORPUSCULAR HEMOGLOBIN 31.5 pg (27.0-31.0); MEAN CORPUSCULAR HGB CONC 32.8 g/dL (32.0-36.0); MEAN CORPUSCULAR VOLUME 96.1 fL (80.0-94.0); MEAN PLATELET VOLUME 10.3 fL (7.4-11.4); MONOCYTES # (AUTO) 0.6 10^3/uL (0.0-1.0); MONOCYTES % (AUTO) 7.4 %; NEUTROPHILS # (AUTO) 5.1 10^3/uL (1.5-6.6); NEUTROPHILS % (AUTO) 67.5 %; PLT - PLATELET COUNT 151 10^3/uL (130-450); RED BLOOD COUNT 5.08 10^6/uL (4.70-6.10); RED CELL DISTRIBUTION WIDTH 13.2 % (12.0-15.0); WHITE BLOOD COUNT 7.6 x10^3/uL (4.8-10.8)
[2021-09-26 15:58] LABS: ALBUMIN 4.1 g/dL (3.2-5.5); ALBUMIN/GLOBULIN RATIO 1.5 (1.0-2.2); ALKALINE PHOSPHATASE 54 IU/L (42-121); ALT ALANINE AMINOTRANSFERASE 17 IU/L (10-60); AST ASPARTATE AMINOTRANSFERASE 22 IU/L (10-42); BILIRUBIN,TOTAL 1.3 mg/dL (0.2-1.0); BUN - BLOOD UREA NITROGEN 21 mg/dL (6-20); CALCIUM 9.1 mg/dL (8.5-10.3); CARBON DIOXIDE - CO2 29 mmol/L (21-32); CHLORIDE 104 mmol/L (101-111); CHOLESTEROL 146 mg/dL; CREATININE 1.2 mg/dL (0.6-1.2); GFR - MDRD 58 (>89); GLUCOSE 115 mg/dL (70-100); HDL CHOLESTEROL 49 mg/dL; LDL CHOLESTEROL,CALCULATED 83 mg/dL; LDL/HDL RATIO 1.7 (<3.6); POTASSIUM 4.5 mmol/L (3.5-5.0); SODIUM 139 mmol/L (135-145); TOTAL PROTEIN 6.9 g/dL (6.7-8.2); TRIGLYCERIDES 69 mg/dL; VLDL CHOLESTEROL 14 mg/dL
== END 2021-09-26 11:12 | disposition home or self-care (01) ==
LOC: LAB.S 11:11
PROVIDERS: ATTEND Registered Nurse
DX: I10 Essential (primary) hypertension (principal); E78.5 Hyperlipidemia, unspecified
CPT/HCPCS: 36415; 80053; 80061; 83721; 85025

== ENCOUNTER 2021-12-30 08:00 | Outpatient (CLI) | payer MEDICARE, OTHER | END 2021-12-30 23:59 | disposition home or self-care (01) | LOC: LAB.S 08:00 | PROVIDERS: ATTEND Physician Assistant | DX: R31.9 Hematuria, unspecified (principal) | CPT/HCPCS: 87086 ==

== ENCOUNTER 2022-03-30 10:44 | Outpatient (CLI) | payer MEDICARE, OTHER ==
[2022-03-30 14:42] LABS: BASOPHILS # (AUTO) 0.1 10^3/uL (0.0-0.1); BASOPHILS % (AUTO) 0.8 %; EOSINOPHILS # (AUTO) 0.6 10^3/uL (0.0-0.7); EOSINOPHILS % (AUTO) 6.3 %; HCT - HEMATOCRIT 50.7 % (42.0-52.0); HGB - HEMOGLOBIN 16.5 g/dL (14.0-18.0); LYMPHOCYTES # (AUTO) 1.6 10^3/uL (1.5-3.5); LYMPHOCYTES % (AUTO) 17.7 %; MEAN CORPUSCULAR HEMOGLOBIN 31.8 pg (27.0-31.0); MEAN CORPUSCULAR HGB CONC 32.5 g/dL (32.0-36.0); MEAN CORPUSCULAR VOLUME 97.7 fL (80.0-94.0); MEAN PLATELET VOLUME 10.4 fL (7.4-11.4); MONOCYTES # (AUTO) 0.8 10^3/uL (0.0-1.0); MONOCYTES % (AUTO) 8.9 %; NEUTROPHILS # (AUTO) 5.8 10^3/uL (1.5-6.6); NEUTROPHILS % (AUTO) 65.8 %; PLT - PLATELET COUNT 159 10^3/uL (130-450); RED BLOOD COUNT 5.19 10^6/uL (4.70-6.10); RED CELL DISTRIBUTION WIDTH 13.8 % (12.0-15.0); WHITE BLOOD COUNT 8.8 x10^3/uL (4.8-10.8)
[2022-03-30 14:44] LABS: ALBUMIN 4.3 g/dL (3.2-5.5); ALBUMIN/GLOBULIN RATIO 1.5 (1.0-2.2); BILIRUBIN,TOTAL 1.4 mg/dL (0.2-1.0); CALCIUM 8.5 mg/dL (8.5-10.3); CREATININE 0.9 mg/dL (0.6-1.2); POTASSIUM 4.4 mmol/L (3.5-5.0); TOTAL PROTEIN 7.1 g/dL (6.7-8.2)
== END 2022-03-30 10:45 | disposition home or self-care (01) ==
LOC: LAB.S 10:44
PROVIDERS: ATTEND Registered Nurse
DX: R31.9 Hematuria, unspecified (principal)
CPT/HCPCS: 36415; 80053; 84153; 85025; 87086

== ENCOUNTER 2022-04-28 17:39 | Outpatient (CLI) | payer MEDICARE, OTHER | END 2022-04-28 23:59 | disposition home or self-care (01) | LOC: LAB 17:39 | PROVIDERS: ATTEND Physician Assistant | DX: R31.9 Hematuria, unspecified (principal) | CPT/HCPCS: 87086 ==

== ENCOUNTER 2022-05-22 11:59 | Outpatient (CLI) | payer MEDICARE, OTHER ==
[2022-05-22 12:27] LABS: CREATININE 0.9 mg/dL (0.6-1.2)
[2022-05-22] MEDS ORDERED: iohexoL-300 100 ML VIAL ONE (12:40)
[2022-05-22] MEDS ORDERED: iohexoL-300 100 ML VIAL IVP ONE (12:57)
--- NOTE | 2022-05-22 15:15 | CT Report ---
PROCEDURE: IVP INDICATIONS: HISTORY OF GROSS HEMATURIA TECHNIQUE: After the administration of intravenous contrast, 5 mm thick sections acquired from the diaphragms to the symphysis. 5 mm thick coronal and sagittal reformats were acquired. For radiation dose reducti on, the following was used: automated exposure control, adjustment of mA and/or kV according to celina ent size. COMPARISON: CT abdomen with and without, 12/13/2018. FINDINGS: Image quality: Excellent. Lung bases: A 6 mm nodule is again noted in the left lower lobe just above the left hemidiaphragm, un changed since 12/13/2018. Lung bases are clear. Heart size is mildly increased. There is a aortic mary ve prosthesis. There is a cardiac pacemaker. Small hiatal hernia. Urinary system: Both kidneys are normal in size and enhancement. No renal stones or hydronephrosis. Contrast-filled renal calyces are normal in morphology. There are multiple low-density cortical nod ules in left kidney, most likely renal cysts. Mild bilateral perinephric stranding. Contrast filled portions of both ureters are normal in caliber. There is a 1.6 m mass in the posterior lateral wall of the urinary bladder suspicious for uroepitheli al neoplasm or mass is at the area of left UVJ. There is no definitive left UVJ obstruction at this t matthew. A smaller mass is noted just lateral and superior to the larger mass measuring 0.7 cm. Solid organs: Liver and spleen are normal in size and enhancement. Gallbladder Biliary system is no n dilated. Pancreas enhances normally. No adrenal nodules. Peritoneum and bowel: Bowel loops demonstrate normal wall thickness and caliber. There are numerous colonic diverticula. No CT findings to suggest acute diverticulitis. No free fluid or air. Nodes and vessels: No retroperitoneal or mesenteric adenopathy by size criteria. Aorta and inferior vena cava are normal in size. Moderate to severe atherosclerotic calcifications are present. Abdominal wall: No ventral hernias. Pelvis: No pathologic free pelvic fluid. No inguinal hernias or adenopathy. Bones: No suspicious bony lesions. Grade 1 anterolisthesis of L5 on S1. There is a Schmorl's node in the inferior endplate of L3.. IMPRESSION: 1. Two bladder masses are seen in the posterior lateral left bladder wall, suspicious for uroepithel ial neoplasm. Recommend cystoscopy for further evaluation. 2. No lymphadenopathy in abdomen or pelvis. 3. Diverticulosis without acute diverticulitis. 4. Multiple cortical hypodensities in left kidney, most likely cysts. 5. Stable 6 mm nodule in the left lung base. Reviewed by: Charlene Castillo MD on 05/22/2022 3:14 PM PST Approved by: Charlene Castillo MD on 05/22/2022 3:14 PM PST Station ID: [id number]
== END 2022-05-22 12:00 | disposition home or self-care (01) ==
LOC: LAB 11:59
PROVIDERS: ATTEND Urology
DX: Z87.898 Personal history of other specified conditions (principal); Z87.448 Personal history of other diseases of urinary system; N32.89 Other specified disorders of bladder; K57.30 Diverticulosis of large intestine without perforation or abscess without bleeding; R93.422 Abnormal radiologic findings on diagnostic imaging of left kidney; R91.1 Solitary pulmonary nodule
CPT/HCPCS: 36415; 74178; 82565; 84520; Q9967

== ENCOUNTER 2022-06-29 13:26 | Emergency (ER) | payer MEDICARE, OTHER ==
--- NOTE | 2022-06-29 14:12 | ED Physician Documentation ---
History of Present Illness - Stated complaint Stated Complaint: MALE - Chief complaint Chief Complaint: General - History obtained from History obtained from: Patient, Family - Additonal information Additional information: The patient comes to the emergency department chief complaint of hematuria and some dysuria. 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 He noticed some mild hematuria yesterday but states the blood has become more prominent over the course of the day today. He has not noticed any clots. No problem initiating his stream. He denies any shortness of breath or chest pain. No fatigue or pallor. He has no prior history of anemia. He is concerned that he may be losing too much blood and has come for evaluation because of this. No other complaints at this time. PD PAST MEDICAL HISTORY - Past Medical History Cardiovascular: Murmur, Valve disorder Respiratory: None Neuro: None Endocrine/Autoimmune: None GI: None : Renal insuffiency HEENT: Chronic hearing loss Psych: Depression Musculoskeletal: None Derm: None - Past Surgical History Past Surgical History: Yes General: Colonoscopy Ortho: Carpal Tunnel surgery Cardiovascular: Valve replacement HEENT: Cataracts - Present Medications Home Medications: Ambulatory Orders Medication Instructions Recorded Confirmed Albuterol Sulf [Ventolin Hfa 2 puffs INH PRN PRN 09/15/18 06/29/22 Inhaler] Atorvastatin [Lipitor] 10 mg ORAL HS 06/29/22 06/29/22 Metoprolol Succinate [Toprol Xl] 50 mg PO DAILY 06/29/22 06/29/22 Sulfamethox/Trimeth 800/160 1 each PO BID #14 tablet 06/29/22 [Bactrim Ds 800/160] Timolol [Betimol] 1 drops OP BID 06/29/22 06/29/22 - Allergies Allergies/Adverse Reactions: Allergies Allergy/AdvReac Type Severity Reaction Status Date / Time mint Allergy Unknown Verified 06/29/22 13:32 Penicillins Allergy Unknown Verified 06/29/22 13:32 - Social History Does the pt smoke?: No Smoking Status: Never smoker Does the pt drink ETOH?: No Does the pt have substance abuse?: No - Immunizations Immunizations are current?: Yes - POLST Patient has POLST: No PD ED PE NORMAL - Vitals Vital signs reviewed: Yes - General General: Alert and oriented X 3, No acute distress, Well developed/nourished - HEENT HEENT: Atraumatic, PERRL, EOMI, Moist mucous membranes - Neck Neck: Supple, no meningeal sign - Cardiac Cardiac: RRR, No murmur, Strong equal pulses - Respiratory Respiratory: No respiratory distress, Clear bilaterally - Abdomen Abdomen: Soft, Non tender, Non distended - Derm Derm: Normal color, Warm and dry, No rash - Extremities Extremities: No deformity, No edema - Neuro Neuro: Alert and oriented X 3 - Psych Psych: Normal mood, Normal affect Results - Vitals Vitals: Oxygen O2 Source Room air - Labs Labs: Microbiology 06/29/22 13:50 Urine Culture - Final Urine,Random No growth Laboratory Tests 06/29/22 06/29/22 13:50 14:36 WBC 9.0 RBC 5.06 Hgb 16.4 Hct 49.5 MCV 97.8 H MCH 32.4 H MCHC 33.1 RDW 13.6 Plt Count 141 MPV 9.5 Neut # (Auto) 6.0 Lymph # (Auto) 1.6 [place] # (Auto) 0.7 Eos # (Auto) 0.5 Baso # (Auto) 0.1 Absolute Nucleated RBC 0.00 Nucleated RBC % 0.0 Urine Color RED/BLOODY Urine Clarity BLOODY Urine pH 5.5 Ur Specific [place] 1.010 Urine Protein >=300 H Urine Glucose (UA) NEGATIVE Urine Ketones NEGATIVE Urine Occult Blood LARGE H Urine Nitrite POSITIVE H Urine Bilirubin NEGATIVE Urine Urobilinogen 0.2 (NORMAL) Ur Leukocyte Esterase TRACE H Urine RBC TNTC H Urine WBC 6-10 H Ur Squamous Epith Cells RARE Squamous Urine Bacteria Moderate H Ur Microscopic Review INDICATED Urine Culture Comments INDICATED PD Medical Decision Making - ED course Complexity details: reviewed results, re-evaluated patient, considered differential, d/w patient ED course: The patient was worked up with UA and CBC, both of which were reviewed by me. CBC was normal, and UA showed a UTI. Pt was started on abx for this. I have encouraged him to continue his plans to f/u with his urologist. We have discussed the usual indications for return. Departure - Departure Disposition: 01 Home, Self Care Clinical Impression: Urinary tract infection with hematuria Qualifiers: Urinary tract infection type: acute cystitis Qualified Code(s): N30.01 - Acute cystitis with hematuria Condition: Stable Instructions: ED UTI Cystitis Male Prescriptions: Sulfamethox/Trimeth 800/160 [Bactrim Ds 800/160] 1 each PO BID #14 tablet Comments: Your blood work looks great. There is no evidence of any abnormality in your red blood cell levels in your bloodstream. You do have infection on your urinalysis and this is most likely the reason why you have noticed the increase in blood in your urine. You have been given first dose of antibiotics here. A prescription for the same has been electronically transmitted to the [facility] pharmacy in [place], your pharmacy of choice on record. Discharge Date/Time: 06/29/22 15:05
[2022-06-29 14:21] LABS: BILIRUBIN,URINE NEGATIVE (NEGATIVE); GLUCOSE, URINE (UA) NEGATIVE (NEGATIVE); KETONES,URINE (UA) NEGATIVE (NEGATIVE); LEUKOCYTE ESTERASE, URINE TRACE (NEGATIVE); NITRITE,URINE POSITIVE (NEGATIVE); OCCULT BLOOD,URINE LARGE (NEGATIVE); PH,URINE 5.5 PH (5.0-7.5); PROTEIN,URINE >=300 mg/dL (NEGATIVE); UROBILINOGEN,URINE 0.2 (NORMAL) E.U./dL (NORMAL)
[2022-06-29 14:27] LABS: BACTERIA,URINE Moderate /HPF (None Seen); CLARITY,URINE BLOODY (CLEAR); RBC,URINE TNTC /HPF (0-5); SQUAMOUS EPITHELIAL CELL,UR RARE Squamous (<= Few)
--- OUTSIDE RECORDS SUMMARY | 2022-06-29 14:37 | EXTERNAL MEDICAL SUMMARY RPT | Continuity of Care Document ---
:1940 Author Organization [facility] Address [address] [place] [address] Phone Care Team Providers Name Role Phone Unavailable Unavailable Unavailable Natalia Britt Unavailable Unavailable Allergies No information. Encounters No information. Functional Status No information. Immunizations No information. Medications No information. Problems date description facility 2022-04-28 00:00 Viral upper respiratory tract [facility] [place] 2022-04-28 00:00 Acute upper respiratory [facility] & infections of unspecified site [facility] [place] 2022-04-28 00:00 Hematuria syndrome [facility] [place] 2022-04-28 00:00 Pulmonary congestion [facility] Pr im[facility] Care & [facility] [place] 2022-04-28 00:00 Other symptoms involving [facility] Care & respiratory system and chest Anc[facility] S [facility] [place] 2022-04-28 00:00 Acute upper respiratory [facility] Primary Care & infection, unspecified [facility] [place] 2022-04-28 00:00 Other specified symptoms and signs [facility] & involving the circulatory and [facility] 2022-04-28 00:00 Hematuria, unspecified [facility] [place] Procedures date description facility 2022-04-28 00:00 Visit Code Hold [facility] [place] 2022-04-28 00:00 POC URINALYSIS DIP [facility] [place] 2022-04-28 00:00 COVID, FLU A+B Antigen (In Clinic [facility] & Free Test) [facility] Results/Labs test date author facility value unit interpret ation Result panel 1 (unknown) (no date) (unknown) [facility] (no value) (units ([facility] nown) Clinic Primary unknown) Care & [facility] Result panel 2 (unknown) (no date) (unknown) [facility] (no value) (units ([facility] nown) Clinic Primary unknown) [facility] Result panel 3 (unknown) (no date) (unknown) [facility] (no value) (units ([facility] nown) Clinic Primary unknown) [facility] Result panel 4 (unknown) (no date) (unknown) [facility] (no value) (units ([facility] nown) Clinic Primary unknown) [facility] Result panel 5 (unknown) (no date) (unknown) [facility] (no value) (units ([facility] nown) Clinic Primary unknown) [facility] Result panel 6 (unknown) (no date) (unknown) [facility] (no value) (units ([facility] nown) Clinic Primary unknown) [facility] Result panel 7 (unknown) (no date) (unknown) [facility] (no value) (units ([facility] nown) Clinic Primary unknown) [facility] Result panel 8 (unknown) (no date) (unknown) [facility] (no value) (units (unk nown) Clinic Primary unknown) [facility] Result panel 9 (unknown) (no date) (unknown) Walk-[facility] (no value) (units ([facility] nown) Clinic Primary unknown) [facility] Result panel 10 (unknown) (no date) (unknown) Walk-In (no value) (units ([facility] nown) Clinic Primary unknown) [facility] Result panel 11 (unknown) (no date) (unknown) Walk-In (no value) (units (unk nown) Clinic Primary unknown) [facility] Result panel 12 (unknown) (no date) (unknown) Walk-[facility] (no value) (units ([facility] nown) Clinic Primary unknown) [facility] Social History date description facility 2022-04-28 00:00 Former smoker [facility] Vital Signs date measurement value units 2022-04-28 00:00 BMI 26.05 kg/m2 2022-04-28 00:00 BP_diastolic 75 mmHg 2022-04-28 00:00 BP_systolic 134 mmHg 2022-04-28 00:00 heart_rate 75 /min 2022-04-28 00:00 height_metric 165.1 cm 2022-04-28 00:00 height_standard 65 in 2022-04-28 00:00 respiration_rate 16 /min 2022-04-28 00:00 temperature_metric 36.28 C 2022-04-28 00:00 temperature_standard 97.3 F 2022-04-28 00:00 weight_metric 70.76 kg 2022-04-28 00:00 weight_standard 156 lb
[2022-06-29 14:42] LABS: BASOPHILS # (AUTO) 0.1 10^3/uL (0.0-0.1); BASOPHILS % (AUTO) 0.7 %; EOSINOPHILS # (AUTO) 0.5 10^3/uL (0.0-0.7); EOSINOPHILS % (AUTO) 5.8 %; HCT - HEMATOCRIT 49.5 % (42.0-52.0); HGB - HEMOGLOBIN 16.4 g/dL (14.0-18.0); LYMPHOCYTES # (AUTO) 1.6 10^3/uL (1.5-3.5); MEAN CORPUSCULAR HEMOGLOBIN 32.4 pg (27.0-31.0); MEAN CORPUSCULAR HGB CONC 33.1 g/dL (32.0-36.0); MEAN CORPUSCULAR VOLUME 97.8 fL (80.0-94.0); MEAN PLATELET VOLUME 9.5 fL (7.4-11.4); MONOCYTES # (AUTO) 0.7 10^3/uL (0.0-1.0); MONOCYTES % (AUTO) 7.8 %; NEUTROPHILS % (AUTO) 67.3 %; PLT - PLATELET COUNT 141 10^3/uL (130-450); RED BLOOD COUNT 5.06 10^6/uL (4.70-6.10); RED CELL DISTRIBUTION WIDTH 13.6 % (12.0-15.0)
[2022-06-29] MEDS ORDERED: SULFAMETH/TRIMETH DS 800/160 MG TABLET PO STA (14:51)
[2022-06-29 15:05] VITALS: BP 143/73
== END 2022-06-29 15:05 | disposition home or self-care (01) ==
LOC: ED 13:26
DX: N30.01 Acute cystitis with hematuria (principal); Z79.899 Other long term (current) drug therapy; Z87.440 Personal history of urinary (tract) infections
CPT/HCPCS: 36415; 81001; 85025; 87086; 99283; A9270; 81003

== ENCOUNTER 2022-11-17 10:38 | Outpatient (CLI) | payer MEDICARE, OTHER ==
[2022-11-17 11:02] LABS: BASOPHILS # (AUTO) 0.1 10^3/uL (0.0-0.1); BASOPHILS % (AUTO) 0.7 %; EOSINOPHILS # (AUTO) 0.4 10^3/uL (0.0-0.7); HCT - HEMATOCRIT 49.5 % (42.0-52.0); HGB - HEMOGLOBIN 15.9 g/dL (14.0-18.0); LYMPHOCYTES # (AUTO) 1.3 10^3/uL (1.5-3.5); LYMPHOCYTES % (AUTO) 15.6 %; MEAN CORPUSCULAR HEMOGLOBIN 30.9 pg (27.0-31.0); MEAN CORPUSCULAR HGB CONC 32.1 g/dL (32.0-36.0); MEAN CORPUSCULAR VOLUME 96.1 fL (80.0-94.0); MONOCYTES # (AUTO) 0.7 10^3/uL (0.0-1.0); MONOCYTES % (AUTO) 8.3 %; NEUTROPHILS # (AUTO) 5.9 10^3/uL (1.5-6.6); NEUTROPHILS % (AUTO) 69.7 %; PLT - PLATELET COUNT 145 10^3/uL (130-450); RED BLOOD COUNT 5.15 10^6/uL (4.70-6.10); RED CELL DISTRIBUTION WIDTH 13.5 % (12.0-15.0); WHITE BLOOD COUNT 8.5 x10^3/uL (4.8-10.8)
[2022-11-17 11:28] LABS: ALBUMIN/GLOBULIN RATIO 1.6 (1.0-2.2); ALKALINE PHOSPHATASE 69 IU/L (42-121); ALT ALANINE AMINOTRANSFERASE 11 IU/L (10-60); AST ASPARTATE AMINOTRANSFERASE 17 IU/L (10-42); BILIRUBIN,TOTAL 1.1 mg/dL (0.2-1.0); BUN - BLOOD UREA NITROGEN 18 mg/dL (6-20); CALCIUM 9.3 mg/dL (8.5-10.3); CARBON DIOXIDE - CO2 30 mmol/L (21-32); CHLORIDE 105 mmol/L (101-111); CHOL/HDL RATIO 2.6 (<5.0); CHOLESTEROL 137 mg/dL; GFR - MDRD 71 (>89); GLUCOSE 108 mg/dL (74-104); HDL CHOLESTEROL 52 mg/dL; LDL CHOLESTEROL,CALCULATED 62 mg/dL; LDL/HDL RATIO 1.2 (<3.6); POTASSIUM 4.4 mmol/L (3.5-4.5); SODIUM 138 mmol/L (135-145); TOTAL PROTEIN 6.5 g/dL (6.4-8.9); TRIGLYCERIDES 117 mg/dL (48-352); VLDL CHOLESTEROL 23 mg/dL
[2022-11-17 11:43] LABS: THYROID STIMULATING HORMONE 1.35 uIU/mL (0.34-5.60)
== END 2022-11-17 10:39 | disposition home or self-care (01) ==
LOC: LAB 10:38
PROVIDERS: ATTEND Registered Nurse
DX: Z79.899 Other long term (current) drug therapy (principal); Z13.220 Encounter for screening for lipoid disorders; Z13.29 Encounter for screening for other suspected endocrine disorder; Z13.0 Encounter for screening for diseases of the blood and blood-forming organs and certain disorders involving the immune mechanism
CPT/HCPCS: 36415; 80053; 80061; 83721; 84443; 85025

== ENCOUNTER 2023-05-12 15:08 | Outpatient (CLI) | payer MEDICARE, OTHER | END 2023-05-12 15:09 | disposition home or self-care (01) | LOC: RT 15:08 | PROVIDERS: ATTEND Surgery | DX: Z01.810 Encounter for preprocedural cardiovascular examination (principal); C67.9 Malignant neoplasm of bladder, unspecified | CPT/HCPCS: 93005 ==